=== PATIENT | female | born 1960 | race Caucasian/White ===

== ENCOUNTER → 2016-11-18 | Outpatient (CLI) | payer OTHER ==
[~2016-11-18] MED LIST: ALDACTONE100 MG PO; CIPRO500 MG PO; DILAUDID2 MG PO; FERROUS SULFAT325 MG PO; FUROSEMIDE20 MG PO; LASIX20 MG PO; LISINOPRIL10 MG PO; LO-DOSE ASPIRIN81 M2 PO; LOVASTATIN20 MG PO; METFORMIN HCL500 MG PO; MORPHINE SULFAT15 M1 PO; MORPHINE SULFAT30 M2 PO; MOTRIN800 MG PO; OXAYDO5 MG PO; OXYCODONE HCL10 MG PO; PLAVIX75 MG PO; PROTONIX40 MG PO; ROXICODONE5 MG PO; SPIRONOLACTONE50 MG PO
== END | disposition home or self-care (01) ==
LOC: RAD 08:24 → EDSTATUS 08:30
PROC: 0W9G3ZZ Drainage of Peritoneal Cavity, Percutaneous Approach (ICD-10-PCS; principal; 2016-11-18)
DX: R18.8 Other ascites (principal)
CPT/HCPCS: P9047

== ENCOUNTER 2016-11-26 16:09 | Emergency (ER) | payer OTHER ==
[~2016-11-26] VITALS: Ht 152.4 cm; Wt 71.5 kg
[2016-11-26 16:58] LABS: EOSINOPHIL (%) 3.3 % (0-5); EOSINOPHIL COUNT 0.3 K/uL (0-0.3); HEMATOCRIT 28.1 % (36.0-46.0); IMMATURE GRANULOCYTE (%) 0.1 % (0.0-0.7); IMMATURE GRANULOCYTE COUNT 0.1 K/uL; LYMPHOCYTE COUNT 0.7 K/uL (1.0-2.8); MCH 28.6 PG (29.0-34.0); MCHC 32.4 G/DL (30.0-36.0); MCV 88.4 FL (83-99); MEAN PLAT.VOLUME 9.6 uM^3 (9.5-12.4); MONOCYTE (%) 6.1 % (3-12); MONOCYTE COUNT 0.5 K/uL (0-0.8); NEUTROPHIL (%) 82.2 % (45-76); NEUTROPHIL COUNT 7.1 K/uL (1.8-6.4); PLATELET COUNT 119 K/uL (156-360); RBC DIS.WIDTH-CV 14.9 % (11.8-14.6); RBC DIS.WIDTH-SD 47.1 % (39-53); RED BLOOD COUNT 3.18 M/uL (3.80-5.20); WHITE BLOOD COUNT 8.7 K/uL (4.1-10.2)
[2016-11-26 17:05] LABS: ADD MIUA? YES; BILIRUBIN NEGATIVE; BLOOD NEGATIVE; COLOR YELLOW ((YELLOW)); GLUCOSE (STRIP) NEGATIVE; KETONES NEGATIVE; LEUKOCYTES NEGATIVE; NITRITE NEGATIVE; PH, URINE 5.5 (5-8); PROTEIN (STRIP) 30; SPECIFIC GRAVITY 1.026 (1.000-1.030); UROBILINOGEN 0.2 MG/DL (0.2-1.0)
[2016-11-26 17:07] LABS: CHLORIDE 109 mEq/L (99-109); POTASSIUM 4.1 mEq/L (3.7-5.4); SODIUM 138 mEq/L (136-147)
[2016-11-26 17:08] LABS: PROTHROMBIN TIME 10.6 (9.2-11.2); PTT 30.8 (25-32)
[2016-11-26 17:09] LABS: GLUCOSE 180 mg/dL (70-99)
[2016-11-26 17:10] LABS: ANION GAP 8 MEQ/L (2-14)
[2016-11-26 17:11] LABS: TOTAL BILIRUBIN 0.3 mg/dL (0.0-1.0)
[2016-11-26 17:12] LABS: ALKALINE PHOSPHATASE 163 IU/L (3-129)
[2016-11-26 17:13] LABS: GFR ESTIMATE (CALCULATED) 41 mL/min/
[2016-11-26 17:14] LABS: UREA NITROGEN (BUN) 25 mg/dL (9-23)
[2016-11-26 18:15] LABS: AMORPHOUS URATES CRYSTALS 1+; BACTERIA RARE; CASTS NONE SEEN /LPF; CRYSTALS PRESENT; EPITHELIAL CELLS 1+; MUCUS NONE SEEN; RED BLOOD CELLS NONE SEEN /HPF (0-5); WHITE BLOOD CELLS NONE SEEN /HPF (0-5)
[2016-11-26 21:13] LABS: TYPE OF FLUID PERITONEAL
[2016-11-26 22:00] LABS: BODY FLUID RBC'S 66 /MM^3 (0-100); BODY FLUID WBC'S 48 /MM^3 (0-500); RED CELL AREA COUNTED 8; RED CELL DILUTION 1; WBC AREA COUNTED 8; WBC DILUTION 1; WHITE CELL RAW COUNT 38
[2016-11-26 22:07] LABS: BODY FLUID EOSINOPHILS 0 % (0-25); MONO RAW COUNT 93; MONONUCLEAR WBC'S 93 %; POLY RAW COUNT 7; POLYNUCLEAR WBC'S 7 % (0-25)
[2016-11-26 23:15] VITALS: BP 116/87
== END 2016-11-26 23:16 | disposition home or self-care (01) ==
LOC: EME 16:09
PROVIDERS: Emergency Medicine; Physician Assistant
DX: R18.8 Other ascites (principal); R10.9 Unspecified abdominal pain; E11.9 Type 2 diabetes mellitus without complications; I10 Essential (primary) hypertension; I25.2 Old myocardial infarction; F17.200 Nicotine dependence, unspecified, uncomplicated; Z87.442 Personal history of urinary calculi; Z95.5 Presence of coronary angioplasty implant and graft; Z91.041 Radiographic dye allergy status; Z88.6 Allergy status to analgesic agent
CPT/HCPCS: 80053; 81003; 83605; 85025; 85610; 85730; 87040; 87070; 87205; 89051; 93005; 99281; 99285; J2060; J2270; J2405

== ENCOUNTER → 2016-12-02 | Outpatient (CLI) | payer OTHER | END | disposition home or self-care (01) | LOC: RAD 08:07 → EDSTATUS 08:30 | PROC: 0W9G3ZZ Drainage of Peritoneal Cavity, Percutaneous Approach (ICD-10-PCS; principal; 2016-12-02) | DX: R18.8 Other ascites (principal) | CPT/HCPCS: P9047 ==

== ENCOUNTER → 2016-12-19 | Outpatient (CLI) | payer OTHER | END | disposition home or self-care (01) | LOC: RAD 08:18 | DX: R18.8 Other ascites (principal); Z91.041 Radiographic dye allergy status; Z91.09 Other allergy status, other than to drugs and biological substances; Z88.6 Allergy status to analgesic agent; Z91.040 Latex allergy status | CPT/HCPCS: P9047 ==

== ENCOUNTER → 2016-12-26 | Outpatient (CLI) | payer OTHER ==
[~2016-12-26] MED LIST changes: +VITAMIN D2000 UNI1 PO
== END | disposition home or self-care (01) ==
LOC: RAD 08:30
PROC: 0W9G3ZZ Drainage of Peritoneal Cavity, Percutaneous Approach (ICD-10-PCS; principal; 2016-12-26)
DX: R18.8 Other ascites (principal)
CPT/HCPCS: P9047

== ENCOUNTER → 2017-01-02 | Outpatient (CLI) | payer OTHER | END | disposition home or self-care (01) | LOC: RAD 07:48 | PROC: 0W9G3ZZ Drainage of Peritoneal Cavity, Percutaneous Approach (ICD-10-PCS; principal; 2017-01-02) | DX: R18.8 Other ascites (principal) | CPT/HCPCS: P9047 ==

== ENCOUNTER → 2017-01-09 | Outpatient (CLI) | payer OTHER | END | disposition home or self-care (01) | LOC: RAD 07:43 | PROC: 0W9G3ZZ Drainage of Peritoneal Cavity, Percutaneous Approach (ICD-10-PCS; principal; 2017-01-09) | DX: R18.8 Other ascites (principal) | CPT/HCPCS: P9047 ==

== ENCOUNTER → 2017-01-13 | Outpatient (CLI) | payer OTHER | END | disposition home or self-care (01) | LOC: RAD 08:10 | PROC: 0W9G3ZZ Drainage of Peritoneal Cavity, Percutaneous Approach (ICD-10-PCS; principal; 2017-01-13) | DX: R18.8 Other ascites (principal) ==

== ENCOUNTER → 2017-01-23 | Outpatient (CLI) | payer OTHER | END | disposition home or self-care (01) | LOC: RAD 01-20 08:30 | PROC: 0W9G3ZZ Drainage of Peritoneal Cavity, Percutaneous Approach (ICD-10-PCS; principal; 2017-01-23) | DX: R18.8 Other ascites (principal) | CPT/HCPCS: P9047 ==

== ENCOUNTER → 2017-01-23 | Outpatient (CLI) | payer OTHER | END | disposition home or self-care (01) | LOC: PICC 07:52 | DX: R18.8 Other ascites (principal); K74.60 Unspecified cirrhosis of liver | CPT/HCPCS: 76937 ==

== ENCOUNTER 2017-01-24 11:43 | Emergency (ER) | payer OTHER ==
[~2017-01-24] VITALS: Ht 152.4 cm; Wt 67.6 kg
[2017-01-24 13:55] VITALS: BP 114/72
== END 2017-01-24 13:55 | disposition home or self-care (01) ==
LOC: EME 11:43
DX: T82.838A Hemorrhage due to vascular prosthetic devices, implants and grafts, initial encounter (principal); Y83.8 Other surgical procedures as the cause of abnormal reaction of the patient, or of later complication, without mention of misadventure at the time of the procedure; J45.909 Unspecified asthma, uncomplicated; G89.29 Other chronic pain; E11.9 Type 2 diabetes mellitus without complications; I10 Essential (primary) hypertension; I25.2 Old myocardial infarction; Z87.442 Personal history of urinary calculi; K74.60 Unspecified cirrhosis of liver; Z98.61 Coronary angioplasty status; Z79.82 Long term (current) use of aspirin; F17.200 Nicotine dependence, unspecified, uncomplicated
CPT/HCPCS: 99281; 99283

== ENCOUNTER → 2017-01-27 | Outpatient (CLI) | payer OTHER | END | disposition home or self-care (01) | LOC: RAD 08:12 | PROC: 0W9G3ZZ Drainage of Peritoneal Cavity, Percutaneous Approach (ICD-10-PCS; principal; 2017-01-27) | DX: R18.8 Other ascites (principal) | CPT/HCPCS: P9047 ==

== ENCOUNTER → 2017-02-03 | Outpatient (CLI) | payer OTHER | END | disposition home or self-care (01) | LOC: RAD 08:01 | PROC: 0W9G3ZZ Drainage of Peritoneal Cavity, Percutaneous Approach (ICD-10-PCS; principal; 2017-02-03) | DX: R18.8 Other ascites (principal) | CPT/HCPCS: P9047 ==

== ENCOUNTER → 2017-02-10 | Outpatient (CLI) | payer OTHER | END | disposition home or self-care (01) | LOC: RAD 08:14 | PROC: 0W9G3ZZ Drainage of Peritoneal Cavity, Percutaneous Approach (ICD-10-PCS; principal; 2017-02-10) | DX: R18.8 Other ascites (principal) | CPT/HCPCS: P9047 ==

== ENCOUNTER → 2017-02-17 | Outpatient (CLI) | payer OTHER | END | disposition home or self-care (01) | LOC: RAD 08:00 | PROC: 0W9G3ZZ Drainage of Peritoneal Cavity, Percutaneous Approach (ICD-10-PCS; principal; 2017-02-17) | DX: R18.8 Other ascites (principal) | CPT/HCPCS: P9047 ==

== ENCOUNTER → 2017-02-24 | Outpatient (CLI) | payer OTHER | END | disposition home or self-care (01) | LOC: RAD 08:03 | PROC: 0W9G3ZZ Drainage of Peritoneal Cavity, Percutaneous Approach (ICD-10-PCS; principal; 2017-02-24) | DX: R18.8 Other ascites (principal) ==

== ENCOUNTER → 2017-03-03 | Outpatient (CLI) | payer OTHER | END | disposition home or self-care (01) | LOC: RAD 08:03 | PROC: 0W9G3ZZ Drainage of Peritoneal Cavity, Percutaneous Approach (ICD-10-PCS; principal; 2017-03-03) | DX: R18.8 Other ascites (principal) | CPT/HCPCS: P9047 ==

== ENCOUNTER 2017-03-06 00:01 | Emergency (ER) | payer OTHER ==
[~2017-03-06] VITALS: Ht 152.4 cm; Wt 71.0 kg
[2017-03-06 00:26] LABS: HEMATOCRIT 27.8 % (36.0-46.0); MCH 27.5 PG (29.0-34.0); MCHC 30.9 G/DL (30.0-36.0); MCV 88.8 FL (83-99); MEAN PLAT.VOLUME 10.6 uM^3 (9.5-12.4); PLATELET COUNT 116 K/uL (156-360); RBC DIS.WIDTH-CV 16.5 % (11.8-14.6); RBC DIS.WIDTH-SD 54.1 % (39-53); RED BLOOD COUNT 3.13 M/uL (3.80-5.20)
[2017-03-06 00:36] LABS: INTER. NORMALIZED RATIO 1.1; PROTHROMBIN TIME 10.7 (9.2-11.2); PTT 32.7 (25-32)
[2017-03-06 00:37] LABS: CHLORIDE 107 mEq/L (99-109); POTASSIUM 4.2 mEq/L (3.7-5.4); SODIUM 137 mEq/L (136-147)
[2017-03-06 00:40] LABS: GLUCOSE 212 mg/dL (70-99)
[2017-03-06 00:41] LABS: ANION GAP 7 MEQ/L (2-14)
[2017-03-06 00:42] LABS: TOTAL BILIRUBIN 0.4 mg/dL (0.0-1.0)
[2017-03-06 00:43] LABS: ALKALINE PHOSPHATASE 152 IU/L (3-129); GFR ESTIMATE (CALCULATED) 35 mL/min/
[2017-03-06 00:44] LABS: UREA NITROGEN (BUN) 21 mg/dL (9-23)
[2017-03-06 00:47] LABS: LIPASE 28 U/L (1.0-51.0)
[2017-03-06 01:21] LABS: ADD MIUA? YES; BILIRUBIN NEGATIVE; BLOOD SMALL; COLOR YELLOW ((YELLOW)); GLUCOSE (STRIP) NEGATIVE; KETONES NEGATIVE; LEUKOCYTES NEGATIVE; NITRITE NEGATIVE; PROTEIN (STRIP) 30; SPECIFIC GRAVITY 1.018 (1.000-1.030); UROBILINOGEN 0.2 MG/DL (0.2-1.0)
[2017-03-06 01:33] LABS: BACTERIA RARE /HPF; EPITHELIAL CELLS 2+ /HPF; HYALINE CASTS 0-5 /LPF; MUCUS TRACE /LPF; UCUL ADDED? NO; WHITE BLOOD CELLS 0-5 /HPF (0-5)
[2017-03-06 08:53] LABS: TYPE OF FLUID PARACENTESIS
[2017-03-06 09:44] LABS: BODY FLUID PROTEIN < 3.0 G/DL
[2017-03-06 10:20] LABS: BODY FLUID EOSINOPHILS 3 % (0-25); BODY FLUID RBC'S < 1000 /MM^3 (0-100); BODY FLUID WBC'S 70 /MM^3 (0-500); MONONUCLEAR WBC'S 84 %; POLYNUCLEAR WBC'S 13 % (0-25)
[2017-03-06 13:32] VITALS: BP 92/56
== END 2017-03-06 13:37 | disposition home or self-care (01) ==
LOC: EME 00:01 → EDOF 08:12 → EME 08:12
PROVIDERS: Emergency Medicine
PROC: BW40ZZZ Ultrasonography of Abdomen (ICD-10-PCS; principal; 2017-03-06)
PROC: 0W9G3ZZ Drainage of Peritoneal Cavity, Percutaneous Approach (ICD-10-PCS; principal; 2017-03-06)
DX: R18.8 Other ascites (principal); K74.60 Unspecified cirrhosis of liver; E11.9 Type 2 diabetes mellitus without complications; I10 Essential (primary) hypertension; D64.9 Anemia, unspecified; Z79.02 Long term (current) use of antithrombotics/antiplatelets; Z79.82 Long term (current) use of aspirin; Z95.5 Presence of coronary angioplasty implant and graft; F17.200 Nicotine dependence, unspecified, uncomplicated
CPT/HCPCS: 71010; 74176; 80053; 81003; 82140; 82150 91; 83605; 83690; 84157; 85027; 85610; 85730; 86900; 86901; 87040; 87070; 87075; 87205; 89051; 99281; 99285; J0696; J2270; J2405; J7050

== ENCOUNTER → 2017-03-10 | Outpatient (CLI) | payer OTHER | END | disposition home or self-care (01) | LOC: RAD 07:45 | PROC: 0W9G3ZZ Drainage of Peritoneal Cavity, Percutaneous Approach (ICD-10-PCS; principal; 2017-03-10) | DX: R18.8 Other ascites (principal) | CPT/HCPCS: P9047 ==

== ENCOUNTER → 2017-03-17 | Outpatient (CLI) | payer OTHER | END | disposition home or self-care (01) | LOC: RAD 08:06 | PROC: 0W9G3ZZ Drainage of Peritoneal Cavity, Percutaneous Approach (ICD-10-PCS; principal; 2017-03-17) | DX: R18.8 Other ascites (principal) | CPT/HCPCS: P9047 ==

== ENCOUNTER → 2017-03-24 | Outpatient (CLI) | payer OTHER | END | disposition home or self-care (01) | LOC: RAD 07:51 | PROC: 0W9G3ZZ Drainage of Peritoneal Cavity, Percutaneous Approach (ICD-10-PCS; principal; 2017-03-24) | DX: R18.8 Other ascites (principal) | CPT/HCPCS: P9047 ==

== ENCOUNTER → 2017-03-31 | Outpatient (CLI) | payer OTHER | END | disposition home or self-care (01) | LOC: RAD 07:57 | PROC: 0W9G3ZZ Drainage of Peritoneal Cavity, Percutaneous Approach (ICD-10-PCS; principal; 2017-03-31) | DX: R18.8 Other ascites (principal) | CPT/HCPCS: P9047 ==

== ENCOUNTER → 2017-04-07 | Outpatient (CLI) | payer OTHER | END | disposition home or self-care (01) | LOC: RAD 07:56 | PROC: 0W9G3ZZ Drainage of Peritoneal Cavity, Percutaneous Approach (ICD-10-PCS; principal; 2017-04-07) | DX: R18.8 Other ascites (principal) | CPT/HCPCS: P9047 ==

== ENCOUNTER → 2017-04-14 | Outpatient (CLI) | payer OTHER | END | disposition home or self-care (01) | LOC: RAD 07:46 | PROC: 0W9G3ZZ Drainage of Peritoneal Cavity, Percutaneous Approach (ICD-10-PCS; principal; 2017-04-14) | DX: R18.8 Other ascites (principal) | CPT/HCPCS: P9047 ==

== ENCOUNTER → 2017-04-21 | Outpatient (CLI) | payer OTHER | END | disposition home or self-care (01) | LOC: RAD 07:55 | PROC: 0W9G3ZZ Drainage of Peritoneal Cavity, Percutaneous Approach (ICD-10-PCS; principal; 2017-04-21) | DX: R18.8 Other ascites (principal) | CPT/HCPCS: P9047 ==

== ENCOUNTER → 2017-04-28 | Outpatient (CLI) | payer OTHER | END | disposition home or self-care (01) | LOC: RAD 07:51 | PROC: 0W9G3ZZ Drainage of Peritoneal Cavity, Percutaneous Approach (ICD-10-PCS; principal; 2017-04-28) | DX: R18.8 Other ascites (principal) | CPT/HCPCS: P9047 ==

== ENCOUNTER 2017-05-01 08:02 | Emergency (ER) | payer OTHER ==
[~2017-05-01] VITALS: Ht 152.4 cm; Wt 70.3 kg
[2017-05-01 08:42] LABS: HEMATOCRIT 28.6 % (36.0-46.0); MCH 26.9 PG (29.0-34.0); MCHC 31.1 G/DL (30.0-36.0); MCV 86.4 FL (83-99); PLATELET COUNT 94 K/uL (156-360); RBC DIS.WIDTH-CV 16.6 % (11.8-14.6); RBC DIS.WIDTH-SD 52.2 % (39-53); RED BLOOD COUNT 3.31 M/uL (3.80-5.20); WHITE BLOOD COUNT 6.7 K/uL (4.1-10.2)
[2017-05-01 08:57] LABS: CHLORIDE 109 mEq/L (99-109); POTASSIUM 4.8 mEq/L (3.7-5.4); SODIUM 138 mEq/L (136-147)
[2017-05-01 09:00] LABS: GLUCOSE 141 mg/dL (70-99)
[2017-05-01 09:01] LABS: ANION GAP 5 MEQ/L (2-14); TOTAL BILIRUBIN 0.9 mg/dL (0.0-1.0)
[2017-05-01 09:03] LABS: ALKALINE PHOSPHATASE 141 IU/L (3-129); GFR ESTIMATE (CALCULATED) 41 mL/min/
[2017-05-01 09:04] LABS: UREA NITROGEN (BUN) 20 mg/dL (9-23)
[2017-05-01 09:07] LABS: LIPASE 30 U/L (1.0-51.0)
[2017-05-01 09:21] LABS: ADD MIUA? YES; BILIRUBIN NEGATIVE; BLOOD SMALL; COLOR YELLOW ((YELLOW)); GLUCOSE (STRIP) NEGATIVE; KETONES NEGATIVE; LEUKOCYTES NEGATIVE; NITRITE NEGATIVE; PROTEIN (STRIP) 30; SPECIFIC GRAVITY 1.014 (1.000-1.030); UROBILINOGEN 0.2 MG/DL (0.2-1.0)
[2017-05-01 09:25] LABS: BACTERIA RARE /HPF; EPITHELIAL CELLS 1+ /HPF; MUCUS TRACE /LPF; RED BLOOD CELLS 0-5 /HPF (0-5); UCUL ADDED? NO; WHITE BLOOD CELLS 0-5 /HPF (0-5)
[2017-05-01 09:48] LABS: INTER. NORMALIZED RATIO 1.1; PROTHROMBIN TIME 10.8 (9.2-11.2); PTT 29.9 (25-32)
[2017-05-01 12:01] VITALS: BP 128/71
== END 2017-05-01 12:02 | disposition home or self-care (01) ==
LOC: EME 08:02
PROVIDERS: Emergency Medicine
DX: R10.9 Unspecified abdominal pain (principal); R18.8 Other ascites; Z98.890 Other specified postprocedural states; I25.2 Old myocardial infarction; F17.200 Nicotine dependence, unspecified, uncomplicated; Z87.442 Personal history of urinary calculi; Z95.5 Presence of coronary angioplasty implant and graft; Z88.6 Allergy status to analgesic agent; Z91.040 Latex allergy status
CPT/HCPCS: 80053; 81003; 83690; 85027; 85610; 85730; 99281; 99284

== ENCOUNTER 2017-05-04 12:47 | Emergency (ER) | payer OTHER ==
[~2017-05-04] VITALS: Ht 152.4 cm; Wt 70.2 kg
[2017-05-04 14:10] LABS: HEMATOCRIT 28.7 % (36.0-46.0); MCH 26.6 PG (29.0-34.0); MCV 85.9 FL (83-99); MEAN PLAT.VOLUME 11.1 uM^3 (9.5-12.4); PLATELET COUNT 105 K/uL (156-360); RBC DIS.WIDTH-CV 16.6 % (11.8-14.6); RBC DIS.WIDTH-SD 52.4 % (39-53); RED BLOOD COUNT 3.34 M/uL (3.80-5.20); WHITE BLOOD COUNT 6.5 K/uL (4.1-10.2)
[2017-05-04 14:19] LABS: CHLORIDE 108 mEq/L (99-109); POTASSIUM 4.1 mEq/L (3.7-5.4); SODIUM 136 mEq/L (136-147)
[2017-05-04 14:21] LABS: GLUCOSE 105 mg/dL (70-99)
[2017-05-04 14:22] LABS: ANION GAP 6 MEQ/L (2-14)
[2017-05-04 14:24] LABS: ADD MIUA? YES; BILIRUBIN NEGATIVE; BLOOD SMALL; COLOR YELLOW ((YELLOW)); GLUCOSE (STRIP) NEGATIVE; KETONES NEGATIVE; LEUKOCYTES NEGATIVE; NITRITE NEGATIVE; PROTEIN (STRIP) 30; SPECIFIC GRAVITY 1.016 (1.000-1.030); UROBILINOGEN 0.2 MG/DL (0.2-1.0)
[2017-05-04 14:25] LABS: ALKALINE PHOSPHATASE 146 IU/L (3-129); GFR ESTIMATE (CALCULATED) 41 mL/min/; TOTAL BILIRUBIN 0.4 mg/dL (0.0-1.0)
[2017-05-04 14:26] LABS: UREA NITROGEN (BUN) 19 mg/dL (9-23)
[2017-05-04 14:28] LABS: BACTERIA NONE SEEN /HPF; EPITHELIAL CELLS RARE /HPF; HYALINE CASTS 0-5 /LPF; MUCUS TRACE /LPF; RED BLOOD CELLS 0-5 /HPF (0-5); UCUL ADDED? NO; WHITE BLOOD CELLS 0-5 /HPF (0-5)
[2017-05-04 14:32] LABS: INTER. NORMALIZED RATIO 1.1; PROTHROMBIN TIME 11.1 (9.2-11.2)
[2017-05-04 14:55] LABS: LIPASE 40 U/L (1.0-51.0)
[2017-05-04 18:07] LABS: TYPE OF FLUID PERICARDIAL
[2017-05-04 18:57] LABS: BODY FLUID EOSINOPHILS 2 % (0-25); BODY FLUID RBC'S < 1000 /MM^3 (0-100); BODY FLUID WBC'S 46 /MM^3 (0-500); COMMENT MANY MACROPHAGES AND FEW MESOTHELIAL CELLS SEEN; MONONUCLEAR WBC'S 93 %; POLYNUCLEAR WBC'S 5 % (0-25)
[2017-05-04 20:13] LABS: BODY FLUID PROTEIN < 3.0 G/DL
[2017-05-04 20:53] VITALS: BP 107/64
== END 2017-05-04 22:02 | disposition home or self-care (01) ==
LOC: EME 12:47
PROVIDERS: Emergency Medicine
DX: K52.9 Noninfective gastroenteritis and colitis, unspecified (principal); K72.90 Hepatic failure, unspecified without coma; Z79.02 Long term (current) use of antithrombotics/antiplatelets; Z79.82 Long term (current) use of aspirin; Z95.5 Presence of coronary angioplasty implant and graft; J45.909 Unspecified asthma, uncomplicated; E11.9 Type 2 diabetes mellitus without complications; I10 Essential (primary) hypertension; Z87.442 Personal history of urinary calculi; I25.2 Old myocardial infarction; Z91.041 Radiographic dye allergy status; Z88.6 Allergy status to analgesic agent; Z91.048 Other nonmedicinal substance allergy status; F17.200 Nicotine dependence, unspecified, uncomplicated
CPT/HCPCS: 71020; 74176; 80053; 81003; 82040; 82945; 83690; 84157; 85027; 85610; 87070; 87205; 89051; 93005; 99281; 99285; J2270; J3010; J7030

== ENCOUNTER 2017-05-05 18:37 | Emergency (ER) | payer OTHER ==
[~2017-05-05] VITALS: Ht 152.4 cm; Wt 66.1 kg
[2017-05-05 20:32] LABS: ADD MIUA? YES; BILIRUBIN NEGATIVE; BLOOD SMALL; COLOR YELLOW ((YELLOW)); GLUCOSE (STRIP) NEGATIVE; KETONES NEGATIVE; LEUKOCYTES NEGATIVE; NITRITE NEGATIVE; PROTEIN (STRIP) 30; SPECIFIC GRAVITY 1.014 (1.000-1.030)
[2017-05-05 20:55] LABS: BACTERIA NONE SEEN /HPF; EPITHELIAL CELLS 1+ /HPF; HYALINE CASTS 0-5 /LPF; MUCUS TRACE /LPF; UCUL ADDED? NO; WHITE BLOOD CELLS 0-5 /HPF (0-5)
[2017-05-05 21:00] LABS: HEMATOCRIT 26.4 % (36.0-46.0); MCH 27.1 PG (29.0-34.0); MCHC 31.8 G/DL (30.0-36.0); MCV 85.2 FL (83-99); MEAN PLAT.VOLUME 10.8 uM^3 (9.5-12.4); PLATELET COUNT 99 K/uL (156-360); RBC DIS.WIDTH-CV 16.6 % (11.8-14.6); RBC DIS.WIDTH-SD 51.8 % (39-53)
[2017-05-05 21:11] LABS: CHLORIDE 111 mEq/L (99-109); POTASSIUM 4.1 mEq/L (3.7-5.4); SODIUM 140 mEq/L (136-147)
[2017-05-05 21:13] LABS: GLUCOSE 99 mg/dL (70-99)
[2017-05-05 21:14] LABS: ANION GAP 6 MEQ/L (2-14)
[2017-05-05 21:16] LABS: ALKALINE PHOSPHATASE 126 IU/L (3-129)
[2017-05-05 21:17] LABS: GFR ESTIMATE (CALCULATED) 45 mL/min/
[2017-05-05 21:18] LABS: UREA NITROGEN (BUN) 19 mg/dL (9-23)
[2017-05-05 21:20] LABS: LIPASE 34 U/L (1.0-51.0); TOTAL BILIRUBIN 0.5 mg/dL (0.0-1.0)
[2017-05-06 00:18] VITALS: BP 110/72
== END 2017-05-06 00:21 | disposition home or self-care (01) ==
LOC: EME 18:37
PROVIDERS: Emergency Medicine
DX: R10.9 Unspecified abdominal pain (principal); K74.60 Unspecified cirrhosis of liver; I25.2 Old myocardial infarction; E11.9 Type 2 diabetes mellitus without complications; J45.909 Unspecified asthma, uncomplicated; Z98.61 Coronary angioplasty status; Z79.82 Long term (current) use of aspirin; Z79.891 Long term (current) use of opiate analgesic; Z79.01 Long term (current) use of anticoagulants; F17.200 Nicotine dependence, unspecified, uncomplicated
CPT/HCPCS: 71020; 74000; 80053; 81003; 83690; 85027; 99281; 99285; J2270; J7030

== ENCOUNTER 2017-05-06 16:52 | Inpatient (IN) | payer OTHER ==
[~2017-05-06] VITALS: Ht 152.4 cm; Wt 66.6 kg
[2017-05-06 17:19] LABS: HEMATOCRIT 27.4 % (36.0-46.0); MCH 26.7 PG (29.0-34.0); MCHC 31.4 G/DL (30.0-36.0); MCV 85.1 FL (83-99); MEAN PLAT.VOLUME 10.4 uM^3 (9.5-12.4); PLATELET COUNT 100 K/uL (156-360); RBC DIS.WIDTH-CV 16.6 % (11.8-14.6); RBC DIS.WIDTH-SD 51.7 % (39-53); RED BLOOD COUNT 3.22 M/uL (3.80-5.20); WHITE BLOOD COUNT 7.3 K/uL (4.1-10.2)
[2017-05-06 17:27] LABS: CHLORIDE 111 mEq/L (99-109); POTASSIUM 4.2 mEq/L (3.7-5.4); SODIUM 138 mEq/L (136-147)
[2017-05-06 17:30] LABS: GLUCOSE 130 mg/dL (70-99)
[2017-05-06 17:31] LABS: ANION GAP 5 MEQ/L (2-14)
[2017-05-06 17:32] LABS: TOTAL BILIRUBIN 0.6 mg/dL (0.0-1.0)
[2017-05-06 17:33] LABS: ALKALINE PHOSPHATASE 125 IU/L (3-129); GFR ESTIMATE (CALCULATED) 49 mL/min/
[2017-05-06 17:34] LABS: UREA NITROGEN (BUN) 15 mg/dL (9-23)
[2017-05-06 18:05] LABS: ADD MIUA? YES; BILIRUBIN NEGATIVE; BLOOD MODERATE; COLOR YELLOW ((YELLOW)); GLUCOSE (STRIP) NEGATIVE; KETONES NEGATIVE; LEUKOCYTES NEGATIVE; NITRITE NEGATIVE; PROTEIN (STRIP) 30; SPECIFIC GRAVITY 1.016 (1.000-1.030)
[2017-05-06 18:13] LABS: BACTERIA NONE SEEN /HPF; EPITHELIAL CELLS 2+ /HPF; MUCUS TRACE /LPF; RED BLOOD CELLS 0-5 /HPF (0-5); UCUL ADDED? NO; WHITE BLOOD CELLS 0-5 /HPF (0-5)
[2017-05-06 21:28] VITALS: BP 129/92
[2017-05-07 02:29] VITALS: BP 115/55
[2017-05-07 07:49] VITALS: BP 113/59
[2017-05-07 11:47] VITALS: BP 93/55
[2017-05-07 16:10] VITALS: BP 125/65
[2017-05-07 16:10] LABS: POINT-OF-CARE METER ID UU13113725
[2017-05-07 16:17] LABS: HEMATOCRIT 26.9 % (36.0-46.0); MCH 27.5 PG (29.0-34.0); MCHC 31.2 G/DL (30.0-36.0); MCV 88.2 FL (83-99); MEAN PLAT.VOLUME 11.1 uM^3 (9.5-12.4); PLATELET COUNT 93 K/uL (156-360); RBC DIS.WIDTH-CV 16.9 % (11.8-14.6); RBC DIS.WIDTH-SD 54.4 % (39-53); RED BLOOD COUNT 3.05 M/uL (3.80-5.20); WHITE BLOOD COUNT 5.6 K/uL (4.1-10.2)
[2017-05-07 16:27] LABS: ANION GAP 4 MEQ/L (2-14); CHLORIDE 111 MEQ/L (99-109); DIRECT BILIRUBIN 0.2 mg/dL (0.0-0.3); SAMPLE HEMOLYSIS CHECK 0; SAMPLE ICTERIC CHECK 0; SAMPLE LIPEMIA CHECK 0; SODIUM 137 MEQ/L (136-147); TOTAL BILIRUBIN 0.6 MG/DL (0.0-1.0)
[2017-05-07 16:33] LABS: ALKALINE PHOSPHATASE 110 IU/L (3-129); GFR ESTIMATE (CALCULATED) 41 mL/min/; GLUCOSE 122 mg/dL (70-99); UREA NITROGEN (BUN) 15 mg/dL (9-23)
[2017-05-07 20:13] VITALS: BP 101/55
[2017-05-07 21:39] LABS: POINT-OF-CARE METER ID UU13113725
[2017-05-08 00:52] VITALS: BP 110/63
[2017-05-08 03:47] VITALS: BP 109/66
[2017-05-08 07:07] VITALS: BP 105/64
[2017-05-08 07:23] LABS: ANION GAP 7 MEQ/L (2-14); CHLORIDE 112 MEQ/L (99-109); GFR ESTIMATE (CALCULATED) 38 mL/min/; POTASSIUM 4.2 MEQ/L (3.7-5.4); SAMPLE HEMOLYSIS CHECK 0; SAMPLE ICTERIC CHECK 0; SAMPLE LIPEMIA CHECK 0; SODIUM 138 MEQ/L (136-147); UREA NITROGEN (BUN) 16 mg/dL (9-23)
[2017-05-08 07:26] LABS: GLUCOSE 91 mg/dL (70-99)
[2017-05-08 09:27] LABS: HEMATOCRIT 27.3 % (36.0-46.0); MCH 26.9 PG (29.0-34.0); MCHC 30.4 G/DL (30.0-36.0); MCV 88.3 FL (83-99); MEAN PLAT.VOLUME 10.8 uM^3 (9.5-12.4); PLATELET COUNT 95 K/uL (156-360); RBC DIS.WIDTH-SD 54.8 % (39-53); RED BLOOD COUNT 3.09 M/uL (3.80-5.20); WHITE BLOOD COUNT 4.6 K/uL (4.1-10.2)
[2017-05-08 11:29] LABS: POINT-OF-CARE METER ID UU13113725
[2017-05-08 12:55] LABS: TYPE OF FLUID PARACENTESIS
[2017-05-08 13:31] LABS: BODY FLUID PROTEIN < 3.0 G/DL
[2017-05-08 13:42] LABS: BODY FLUID EOSINOPHILS 0 % (0-25); BODY FLUID RBC'S < 1000 /MM^3 (0-100); BODY FLUID WBC'S 34 /MM^3 (0-500); MONONUCLEAR WBC'S 95 %; POLYNUCLEAR WBC'S 5 % (0-25)
[2017-05-08 16:34] VITALS: BP 111/56
[2017-05-08 16:38] LABS: POINT-OF-CARE METER ID UU13113725
[2017-05-08 21:06] LABS: POINT-OF-CARE METER ID UU13113725
[2017-05-08 23:19] VITALS: BP 110/61
[2017-05-09 05:43] LABS: POINT-OF-CARE METER ID UU13113725
[2017-05-09 06:59] VITALS: BP 107/59
[2017-05-09 17:24] VITALS: BP 110/64
[2017-05-09 22:20] VITALS: BP 98/53
[2017-05-10 05:52] LABS: POINT-OF-CARE METER ID UU13113725
[2017-05-10 06:10] LABS: EOSINOPHIL (%) 0 % (0-5); HEMATOCRIT 23.4 % (36.0-46.0); IMMATURE GRANULOCYTE (%) 0.3 % (0.0-0.7); INSTRUMENT ABS NEUTROPHIL CT 2.9 K/uL; LYMPHOCYTE COUNT 0.6 K/uL (1.0-2.8); MCH 27.7 PG (29.0-34.0); MCHC 31.6 G/DL (30.0-36.0); MCV 87.6 FL (83-99); MEAN PLAT.VOLUME 11.3 uM^3 (9.5-12.4); MONOCYTE COUNT 0.3 K/uL (0-0.8); NEUTROPHIL (%) 77.7 % (45-76); NEUTROPHIL COUNT 2.9 K/uL (1.8-6.4); PLATELET COUNT 75 K/uL (156-360); RBC DIS.WIDTH-CV 17.1 % (11.8-14.6); RBC DIS.WIDTH-SD 53.7 % (39-53); RED BLOOD COUNT 2.67 M/uL (3.80-5.20); WHITE BLOOD COUNT 3.7 K/uL (4.1-10.2)
[2017-05-10 06:41] LABS: ANION GAP 5 MEQ/L (2-14); CHLORIDE 112 MEQ/L (99-109); GFR ESTIMATE (CALCULATED) 35 mL/min/; GLUCOSE 124 mg/dL (70-99); POTASSIUM 4.1 MEQ/L (3.7-5.4); SAMPLE HEMOLYSIS CHECK 0; SAMPLE ICTERIC CHECK 0; SAMPLE LIPEMIA CHECK 0; SODIUM 139 MEQ/L (136-147); UREA NITROGEN (BUN) 16 mg/dL (9-23)
[2017-05-10 07:55] VITALS: BP 100/57
[2017-05-10 15:38] VITALS: BP 93/54
[2017-05-10 15:47] LABS: POINT-OF-CARE METER ID UU13113725
[2017-05-10] MEDS ORDERED: PANTOPRAZOLE SO40 MG PO (20:01)
[2017-05-10] MEDS ORDERED: CEFADROXIL500 MG PO (20:01)
[2017-05-10] MEDS ORDERED: OXYCODONE HCL5 MG PO (20:05)
== END 2017-05-10 20:57 | disposition home or self-care (01) | DRG 948 ==
LOC: EME 16:52 → EDOF 19:06 → 5EAST 19:06
PROVIDERS: Internal Medicine; Internal Medicine Gastroenterology
PROC: 0W9G3ZZ Drainage of Peritoneal Cavity, Percutaneous Approach (ICD-10-PCS; principal; 2017-05-08)
DX: R18.8 Other ascites (principal); R10.9 Unspecified abdominal pain; K74.69 Other cirrhosis of liver; K76.6 Portal hypertension; I25.10 Atherosclerotic heart disease of native coronary artery without angina pectoris; I10 Essential (primary) hypertension; D64.9 Anemia, unspecified; D69.6 Thrombocytopenia, unspecified; K52.9 Noninfective gastroenteritis and colitis, unspecified; E11.9 Type 2 diabetes mellitus without complications; J45.909 Unspecified asthma, uncomplicated; F17.200 Nicotine dependence, unspecified, uncomplicated; Z95.5 Presence of coronary angioplasty implant and graft; I25.2 Old myocardial infarction; Z79.02 Long term (current) use of antithrombotics/antiplatelets; Z79.82 Long term (current) use of aspirin; Z79.891 Long term (current) use of opiate analgesic; Z91.041 Radiographic dye allergy status
CPT/HCPCS: 71010; 74176; 74185; 80048; 80053; 80069; 81003; 82248; 82945; 82948; 84157; 85025; 85027; 87070; 87205; 87493; 88108; 88305; 89051; 99281; 99284; C9113; J1170; J1650; J1815; J2060; J2405; J7042; J7050; P9047

== ENCOUNTER → 2017-05-13 | Outpatient (CLI) | payer OTHER ==
[~2017-05-13] MED LIST changes: +CEFADROXIL500 MG PO; +OXYCODONE HCL5 MG PO; +PANTOPRAZOLE SO40 MG PO
== END | disposition home or self-care (01) ==
LOC: RAD 08:09
PROC: 0W9G3ZZ Drainage of Peritoneal Cavity, Percutaneous Approach (ICD-10-PCS; principal; 2017-05-13)
DX: R18.8 Other ascites (principal)
CPT/HCPCS: 49083; P9047

== ENCOUNTER → 2017-05-19 | Outpatient (CLI) | payer OTHER ==
[~2017-05-19] MED LIST changes: +ARYMO ER15 MG PO
== END | disposition home or self-care (01) ==
LOC: RAD 07:49
PROC: 0W9G3ZZ Drainage of Peritoneal Cavity, Percutaneous Approach (ICD-10-PCS; principal; 2017-05-19)
DX: R18.8 Other ascites (principal)
CPT/HCPCS: 49083

== ENCOUNTER → 2017-05-26 | Outpatient (CLI) | payer OTHER | END | disposition home or self-care (01) | LOC: RAD 07:51 | PROC: 0W9G3ZZ Drainage of Peritoneal Cavity, Percutaneous Approach (ICD-10-PCS; principal; 2017-05-26) | DX: R18.8 Other ascites (principal) | CPT/HCPCS: 49083 ==

== ENCOUNTER → 2017-06-02 | Outpatient (CLI) | payer OTHER | END | disposition home or self-care (01) | LOC: RAD 08:10 | PROC: 0W9G3ZZ Drainage of Peritoneal Cavity, Percutaneous Approach (ICD-10-PCS; principal; 2017-06-02) | DX: R18.8 Other ascites (principal) | CPT/HCPCS: 49083 ==

== ENCOUNTER → 2017-06-08 | Outpatient (CLI) | payer OTHER | END | disposition home or self-care (01) | LOC: RAD 08:08 | PROC: 0W9G3ZZ Drainage of Peritoneal Cavity, Percutaneous Approach (ICD-10-PCS; principal; 2017-06-08) | DX: R18.8 Other ascites (principal) | CPT/HCPCS: 49083 ==

== ENCOUNTER 2017-06-15 11:05 | Emergency (ER) | payer OTHER ==
[~2017-06-15] VITALS: Ht 152.4 cm; Wt 66.2 kg
[2017-06-15 11:49] LABS: ADD MIUA? YES; BILIRUBIN NEGATIVE; BLOOD MODERATE; COLOR YELLOW ((YELLOW)); GLUCOSE (STRIP) NEGATIVE; KETONES NEGATIVE; LEUKOCYTES NEGATIVE; NITRITE NEGATIVE; PROTEIN (STRIP) 30; SPECIFIC GRAVITY 1.014 (1.000-1.030); UROBILINOGEN 0.2 MG/DL (0.2-1.0)
[2017-06-15 11:52] LABS: BACTERIA NONE SEEN /HPF; EPITHELIAL CELLS RARE /HPF; HYALINE CASTS 0-5 /LPF; MUCUS TRACE /LPF; UCUL ADDED? NO; WHITE BLOOD CELLS 0-5 /HPF (0-5)
[2017-06-15 12:30] LABS: EOSINOPHIL (%) 0 % (0-5); HEMATOCRIT 27.5 % (36.0-46.0); IMMATURE GRANULOCYTE (%) 0.5 % (0.0-0.7); INSTRUMENT ABS NEUTROPHIL CT 5.8 K/uL; LYMPHOCYTE COUNT 0.5 K/uL (1.0-2.8); MCH 26.7 PG (29.0-34.0); MCV 83.6 FL (83-99); MEAN PLAT.VOLUME 10.9 uM^3 (9.5-12.4); MONOCYTE (%) 3.9 % (3-12); MONOCYTE COUNT 0.3 K/uL (0-0.8); NEUTROPHIL (%) 87.2 % (45-76); NEUTROPHIL COUNT 5.8 K/uL (1.8-6.4); PLATELET COUNT 85 K/uL (156-360); RBC DIS.WIDTH-CV 16.9 % (11.8-14.6); RBC DIS.WIDTH-SD 51.8 % (39-53); RED BLOOD COUNT 3.29 M/uL (3.80-5.20); WHITE BLOOD COUNT 6.6 K/uL (4.1-10.2)
[2017-06-15 12:57] LABS: CHLORIDE 108 mEq/L (99-109); SODIUM 138 mEq/L (136-147)
[2017-06-15 12:59] LABS: GLUCOSE 125 mg/dL (70-99)
[2017-06-15 13:00] LABS: ANION GAP 6 MEQ/L (2-14)
[2017-06-15 13:01] LABS: TOTAL BILIRUBIN 0.5 mg/dL (0.0-1.0)
[2017-06-15 13:03] LABS: ALKALINE PHOSPHATASE 165 IU/L (3-129); GFR ESTIMATE (CALCULATED) 49 mL/min/
[2017-06-15 13:04] LABS: UREA NITROGEN (BUN) 17 mg/dL (9-23)
[2017-06-15 13:06] LABS: LIPASE 37 U/L (1.0-51.0)
[2017-06-15 16:22] VITALS: BP 132/72
== END 2017-06-15 16:23 | disposition home or self-care (01) ==
LOC: EME → EDSEX 11:05 → EDBD 11:05 → EME 11:05
PROVIDERS: Emergency Medicine
DX: R10.9 Unspecified abdominal pain (principal); K74.60 Unspecified cirrhosis of liver; F17.200 Nicotine dependence, unspecified, uncomplicated; I25.2 Old myocardial infarction; I10 Essential (primary) hypertension; E11.9 Type 2 diabetes mellitus without complications; R18.8 Other ascites; Z79.82 Long term (current) use of aspirin; Z79.02 Long term (current) use of antithrombotics/antiplatelets
CPT/HCPCS: 71010; 74176; 80053; 81003; 83690; 85025; 99281; 99284; J2270; J2405; J2765; J7030

== ENCOUNTER → 2017-06-15 | Outpatient (CLI) | payer OTHER | END | disposition home or self-care (01) | LOC: RAD 07:43 | PROC: 0W9G3ZZ Drainage of Peritoneal Cavity, Percutaneous Approach (ICD-10-PCS; principal; 2017-06-15) | DX: R18.8 Other ascites (principal) | CPT/HCPCS: 49083; P9047 ==

== ENCOUNTER → 2017-06-23 | Outpatient (CLI) | payer OTHER | END | disposition home or self-care (01) | LOC: RAD 07:59 | PROC: 0W9G3ZZ Drainage of Peritoneal Cavity, Percutaneous Approach (ICD-10-PCS; principal; 2017-06-23) | DX: R18.8 Other ascites (principal) | CPT/HCPCS: 49083; P9047 ==

== ENCOUNTER → 2017-06-30 | Outpatient (CLI) | payer OTHER | END | disposition home or self-care (01) | LOC: RAD 07:53 | PROC: 0W9G3ZZ Drainage of Peritoneal Cavity, Percutaneous Approach (ICD-10-PCS; principal; 2017-06-30) | DX: R18.8 Other ascites (principal) | CPT/HCPCS: 49083; P9047 ==

== ENCOUNTER → 2017-07-07 | Outpatient (CLI) | payer OTHER ==
[~2017-07-07] MED LIST changes: +FLAGYL500 MG PO
== END | disposition home or self-care (01) ==
LOC: RAD 07:51
PROC: 0W9G3ZZ Drainage of Peritoneal Cavity, Percutaneous Approach (ICD-10-PCS; principal; 2017-07-07)
DX: R18.8 Other ascites (principal)
CPT/HCPCS: 49083; P9047

== ENCOUNTER 2017-07-12 22:16 | Observation (INO) | payer OTHER ==
[~2017-07-12] VITALS: Ht 152.4 cm; Wt 71.5 kg
[~2017-07-12 22:16] MED LIST changes: -FLAGYL500 MG PO
[2017-07-12 23:34] LABS: ADD MIUA? YES; BILIRUBIN NEGATIVE; BLOOD SMALL; COLOR YELLOW ((YELLOW)); GLUCOSE (STRIP) NEGATIVE; KETONES NEGATIVE; LEUKOCYTES SMALL; NITRITE NEGATIVE; PROTEIN (STRIP) 30; SPECIFIC GRAVITY 1.017 (1.000-1.030); UROBILINOGEN 0.2 MG/DL (0.2-1.0)
[2017-07-12 23:39] LABS: BACTERIA RARE /HPF; EPITHELIAL CELLS 2+ /HPF; HYALINE CASTS 0-5 /LPF; MUCUS TRACE /LPF; RED BLOOD CELLS 0-5 /HPF (0-5); UCUL ADDED? NO; WHITE BLOOD CELLS 0-5 /HPF (0-5)
[2017-07-13] LABS: HEMATOCRIT 24.6 % (36.0-46.0); MCH 27.8 PG (29.0-34.0); MCHC 32.1 G/DL (30.0-36.0); MCV 86.6 FL (83-99); MEAN PLAT.VOLUME 11.3 uM^3 (9.5-12.4); PLATELET COUNT 83 K/uL (156-360); RBC DIS.WIDTH-CV 16.3 % (11.8-14.6); RBC DIS.WIDTH-SD 51.8 % (39-53); RED BLOOD COUNT 2.84 M/uL (3.80-5.20); WHITE BLOOD COUNT 5.1 K/uL (4.1-10.2)
[2017-07-13 00:11] LABS: CHLORIDE 111 mEq/L (99-109); POTASSIUM 4.8 mEq/L (3.7-5.4); SODIUM 139 mEq/L (136-147)
[2017-07-13 00:13] LABS: GLUCOSE 133 mg/dL (70-99)
[2017-07-13 00:14] LABS: ANION GAP 7 MEQ/L (2-14)
[2017-07-13 00:15] LABS: TOTAL BILIRUBIN 0.4 mg/dL (0.0-1.0)
[2017-07-13 00:16] LABS: ALKALINE PHOSPHATASE 134 IU/L (3-129)
[2017-07-13 00:17] LABS: GFR ESTIMATE (CALCULATED) 41 mL/min/
[2017-07-13 00:18] LABS: UREA NITROGEN (BUN) 19 mg/dL (9-23)
[2017-07-13 04:46] VITALS: BP 124/76
[2017-07-13 07:50] VITALS: BP 97/53
[2017-07-13 11:35] VITALS: BP 116/68
[2017-07-13 15:35] VITALS: BP 125/61
[2017-07-13] MEDS ORDERED: PROTONIX40 MG PO (17:55)
[2017-07-13] MEDS ORDERED: MORPHINE SULFAT15 M1 PO (17:57)
[2017-07-13 19:43] VITALS: BP 107/64
[2017-07-13 23:41] VITALS: BP 111/59
[2017-07-14 03:41] VITALS: BP 84/45
[2017-07-14 07:17] LABS: EOSINOPHIL (%) 0.2 % (0-5); HEMATOCRIT 26.4 % (36.0-46.0); IMMATURE GRANULOCYTE (%) 0.2 % (0.0-0.7); INSTRUMENT ABS NEUTROPHIL CT 3.9 K/uL; LYMPHOCYTE COUNT 0.7 K/uL (1.0-2.8); MCH 27.5 PG (29.0-34.0); MCHC 31.1 G/DL (30.0-36.0); MCV 88.6 FL (83-99); MONOCYTE (%) 5.7 % (3-12); MONOCYTE COUNT 0.3 K/uL (0-0.8); NEUTROPHIL (%) 79.4 % (45-76); NEUTROPHIL COUNT 3.9 K/uL (1.8-6.4); PLATELET COUNT 79 K/uL (156-360); RBC DIS.WIDTH-CV 16.4 % (11.8-14.6); RBC DIS.WIDTH-SD 53.1 % (39-53); RED BLOOD COUNT 2.98 M/uL (3.80-5.20); WHITE BLOOD COUNT 4.9 K/uL (4.1-10.2)
[2017-07-14 07:39] LABS: INTER. NORMALIZED RATIO 1.1; PROTHROMBIN TIME 11.9 SEC (10.2-12.9)
[2017-07-14 07:41] LABS: PTT 36.7 SEC (25-37)
[2017-07-14 07:43] LABS: ALKALINE PHOSPHATASE 130 IU/L (3-129); ANION GAP 4 MEQ/L (2-14); CHLORIDE 109 MEQ/L (99-109); DIRECT BILIRUBIN 0.1 mg/dL (0.0-0.3); GFR ESTIMATE (CALCULATED) 41 mL/min/; POTASSIUM 4.2 MEQ/L (3.7-5.4); SAMPLE HEMOLYSIS CHECK 0; SAMPLE ICTERIC CHECK 0; SAMPLE LIPEMIA CHECK 0; SODIUM 136 MEQ/L (136-147); TOTAL BILIRUBIN 0.6 MG/DL (0.0-1.0); UREA NITROGEN (BUN) 17 mg/dL (9-23)
[2017-07-14 07:45] LABS: GLUCOSE 95 mg/dL (70-99)
[2017-07-14 09:09] VITALS: BP 100/58
[2017-07-14 12:25] VITALS: BP 105/60
[2017-07-14] MEDS ORDERED: FLAGYL500 MG PO (14:37)
[2017-07-14] MEDS ORDERED: CIPRO500 MG PO (14:38)
[2017-07-14 16:22] VITALS: BP 105/60
== END 2017-07-14 16:52 | disposition home or self-care (01) ==
LOC: EME 22:16 → 2EAST 07-13 02:46 → EDOF 07-13 02:46 → ENRESERV 07-13 02:59 → 2EAST 07-13 04:35
PROVIDERS: Internal Medicine
PROC: 0W9G3ZZ Drainage of Peritoneal Cavity, Percutaneous Approach (ICD-10-PCS; principal; 2017-07-14)
DX: R10.84 Generalized abdominal pain (principal); K74.60 Unspecified cirrhosis of liver; R18.8 Other ascites; I10 Essential (primary) hypertension; G89.29 Other chronic pain; I25.10 Atherosclerotic heart disease of native coronary artery without angina pectoris; Z95.5 Presence of coronary angioplasty implant and graft; I25.2 Old myocardial infarction; E11.9 Type 2 diabetes mellitus without complications; J44.9 Chronic obstructive pulmonary disease, unspecified; Z87.891 Personal history of nicotine dependence; Z79.891 Long term (current) use of opiate analgesic; Z82.49 Family history of ischemic heart disease and other diseases of the circulatory system; Z83.3 Family history of diabetes mellitus
CPT/HCPCS: 49083; 74000; 74176; 80053; 81003; 82248; 85025; 85027; 85610; 85730; 99281; 99285; C9113; G0378; J0744; J1650; J2270; J2405; S0030

== ENCOUNTER → 2017-07-21 | Outpatient (CLI) | payer OTHER ==
[~2017-07-21] MED LIST changes: +FLAGYL500 MG PO
== END | disposition home or self-care (01) ==
LOC: RAD 07:51
PROC: 0W9G3ZZ Drainage of Peritoneal Cavity, Percutaneous Approach (ICD-10-PCS; principal; 2017-07-21)
DX: R18.8 Other ascites (principal)
CPT/HCPCS: 49083; P9047

== ENCOUNTER → 2017-07-28 | Outpatient (CLI) | payer OTHER | END | disposition home or self-care (01) | LOC: RAD 07:54 | PROC: 0W9G3ZZ Drainage of Peritoneal Cavity, Percutaneous Approach (ICD-10-PCS; principal; 2017-07-28) | DX: R18.8 Other ascites (principal) | CPT/HCPCS: 49083 ==

== ENCOUNTER → 2017-08-04 | Outpatient (CLI) | payer OTHER ==
[~2017-08-04] MED LIST changes: +BACTRIM,SEPT1 TABLET PO
== END | disposition home or self-care (01) ==
LOC: RAD 08:11
PROC: 0W9G3ZZ Drainage of Peritoneal Cavity, Percutaneous Approach (ICD-10-PCS; principal; 2017-08-04)
DX: R18.8 Other ascites (principal)
CPT/HCPCS: 49083

== ENCOUNTER 2017-08-05 21:32 | Inpatient (IN) | payer OTHER ==
[~2017-08-05] VITALS: Ht 152.4 cm; Wt 69.3 kg
[~2017-08-05 21:32] MED LIST changes: -BACTRIM,SEPT1 TABLET PO
[2017-08-05 21:51] LABS: HEMATOCRIT 28.6 % (36.0-46.0); MCH 27.9 PG (29.0-34.0); MCHC 31.8 G/DL (30.0-36.0); MCV 87.7 FL (83-99); MEAN PLAT.VOLUME 10.9 uM^3 (9.5-12.4); PLATELET COUNT 97 K/uL (156-360); RBC DIS.WIDTH-CV 16.6 % (11.8-14.6); RBC DIS.WIDTH-SD 53.3 % (39-53); RED BLOOD COUNT 3.26 M/uL (3.80-5.20); WHITE BLOOD COUNT 7.6 K/uL (4.1-10.2)
[2017-08-05 22:00] LABS: CHLORIDE 109 mEq/L (99-109); POTASSIUM 4.4 mEq/L (3.7-5.4); SODIUM 137 mEq/L (136-147)
[2017-08-05 22:02] LABS: GLUCOSE 159 mg/dL (70-99)
[2017-08-05 22:03] LABS: ANION GAP 7 MEQ/L (2-14)
[2017-08-05 22:04] LABS: TOTAL BILIRUBIN 0.4 mg/dL (0.0-1.0)
[2017-08-05 22:05] LABS: ALKALINE PHOSPHATASE 167 IU/L (3-129)
[2017-08-05 22:06] LABS: GFR ESTIMATE (CALCULATED) 41 mL/min/
[2017-08-05 22:07] LABS: UREA NITROGEN (BUN) 20 mg/dL (9-23)
[2017-08-05 22:09] LABS: LIPASE 45 U/L (1.0-51.0)
[2017-08-05 22:22] LABS: ADD MIUA? YES; BILIRUBIN NEGATIVE; BLOOD MODERATE; COLOR YELLOW ((YELLOW)); GLUCOSE (STRIP) NEGATIVE; KETONES NEGATIVE; LEUKOCYTES TRACE; NITRITE NEGATIVE; PROTEIN (STRIP) 30
[2017-08-05 22:30] LABS: BACTERIA RARE /HPF; EPITHELIAL CELLS 1+ /HPF; MUCUS TRACE /LPF; UCUL ADDED? YES
[2017-08-06 01:09] LABS: BODY FLUID RBC'S 74 /MM^3 (0-100); BODY FLUID WBC'S 3000 /MM^3 (0-500)
[2017-08-06 01:28] LABS: BODY FLUID EOSINOPHILS 0 % (0-25); MONO RAW COUNT 94; MONONUCLEAR WBC'S 94 %; POLY RAW COUNT 6; POLYNUCLEAR WBC'S 6 % (0-25)
[2017-08-06] MEDS ORDERED: OXYCODONE HCL10 MG PO (01:39)
[2017-08-06 03:07] LABS: BODY FLUID PROTEIN < 3.0 G/DL
[2017-08-06 05:17] VITALS: BP 104/65
[2017-08-06 09:03] VITALS: BP 109/62
[2017-08-06 10:03] LABS: TYPE OF FLUID PERITONEAL
[2017-08-06 15:35] VITALS: BP 101/62
[2017-08-06 20:33] VITALS: BP 105/59
[2017-08-07] VITALS (7 sets, daily range): BP systolic 102–126; BP diastolic 53–63
[2017-08-07 06:47] LABS: HEMATOCRIT 26.6 % (36.0-46.0); MCH 27.2 PG (29.0-34.0); MCHC 30.8 G/DL (30.0-36.0); MCV 88.1 FL (83-99); MEAN PLAT.VOLUME 11.8 uM^3 (9.5-12.4); PLATELET COUNT 83 K/uL (156-360); RBC DIS.WIDTH-CV 16.5 % (11.8-14.6); RBC DIS.WIDTH-SD 53.4 % (39-53); RED BLOOD COUNT 3.02 M/uL (3.80-5.20); WHITE BLOOD COUNT 5.7 K/uL (4.1-10.2)
[2017-08-07 07:09] LABS: ALKALINE PHOSPHATASE 113 IU/L (3-129); ANION GAP 6 MEQ/L (2-14); CHLORIDE 111 MEQ/L (99-109); DIRECT BILIRUBIN 0.2 mg/dL (0.0-0.3); GFR ESTIMATE (CALCULATED) 49 mL/min/; POTASSIUM 4.5 MEQ/L (3.7-5.4); SAMPLE HEMOLYSIS CHECK 0; SAMPLE ICTERIC CHECK 0; SAMPLE LIPEMIA CHECK 0; SODIUM 138 MEQ/L (136-147); TOTAL BILIRUBIN 0.5 MG/DL (0.0-1.0); UREA NITROGEN (BUN) 19 mg/dL (9-23)
[2017-08-07 07:26] LABS: GLUCOSE 110 mg/dL (70-99)
[2017-08-08] VITALS (10 sets, daily range): BP systolic 94–117; BP diastolic 51–65
[2017-08-08 07:19] LABS: HEMATOCRIT 32.8 % (36.0-46.0); MCH 28.9 PG (29.0-34.0); MCHC 32.3 G/DL (30.0-36.0); MCV 89.4 FL (83-99); MEAN PLAT.VOLUME 11.9 uM^3 (9.5-12.4); PLATELET COUNT 83 K/uL (156-360); RBC DIS.WIDTH-CV 15.9 % (11.8-14.6); RBC DIS.WIDTH-SD 52.4 % (39-53); RED BLOOD COUNT 3.67 M/uL (3.80-5.20); WHITE BLOOD COUNT 5.6 K/uL (4.1-10.2)
[2017-08-08 07:31] LABS: ANION GAP 3 MEQ/L (2-14); CHLORIDE 108 MEQ/L (99-109); GFR ESTIMATE (CALCULATED) 41 mL/min/; GLUCOSE 89 mg/dL (70-99); POTASSIUM 4.6 MEQ/L (3.7-5.4); SAMPLE HEMOLYSIS CHECK 0; SAMPLE ICTERIC CHECK 0; SAMPLE LIPEMIA CHECK 0; SODIUM 135 MEQ/L (136-147); UREA NITROGEN (BUN) 18 mg/dL (9-23)
[2017-08-09] VITALS: BP 98/60
[2017-08-09 07:12] LABS: EOSINOPHIL (%) 0 % (0-5); HEMATOCRIT 31.5 % (36.0-46.0); IMMATURE GRANULOCYTE (%) 0.2 % (0.0-0.7); INSTRUMENT ABS NEUTROPHIL CT 4.2 K/uL; LYMPHOCYTE COUNT 0.7 K/uL (1.0-2.8); MCH 28.8 PG (29.0-34.0); MCHC 32.7 G/DL (30.0-36.0); MEAN PLAT.VOLUME 11.7 uM^3 (9.5-12.4); MONOCYTE (%) 6.2 % (3-12); MONOCYTE COUNT 0.3 K/uL (0-0.8); NEUTROPHIL (%) 79.9 % (45-76); NEUTROPHIL COUNT 4.2 K/uL (1.8-6.4); PLATELET COUNT 76 K/uL (156-360); RBC DIS.WIDTH-CV 16.6 % (11.8-14.6); RBC DIS.WIDTH-SD 53.1 % (39-53); RED BLOOD COUNT 3.58 M/uL (3.80-5.20); WHITE BLOOD COUNT 5.3 K/uL (4.1-10.2)
[2017-08-09 07:35] LABS: ANION GAP 4 MEQ/L (2-14); CHLORIDE 112 MEQ/L (99-109); GFR ESTIMATE (CALCULATED) 35 mL/min/; GLUCOSE 99 mg/dL (70-99); POTASSIUM 4.7 MEQ/L (3.7-5.4); SAMPLE HEMOLYSIS CHECK 0; SAMPLE ICTERIC CHECK 0; SAMPLE LIPEMIA CHECK 0; SODIUM 138 MEQ/L (136-147); UREA NITROGEN (BUN) 21 mg/dL (9-23)
[2017-08-09 07:48] VITALS: BP 102/68
[2017-08-09 15:46] VITALS: BP 97/52
[2017-08-09] MEDS ORDERED: BACTRIM,SEPT1 TABLET PO (17:54)
[2017-08-09] MEDS ORDERED: PANTOPRAZOLE SO40 MG PO (17:54)
[2017-08-09] MEDS ORDERED: FUROSEMIDE20 MG PO (17:54)
[2017-08-12] MEDS ORDERED: LASIX20 MG PO (08:16)
== END 2017-08-09 18:20 | disposition home or self-care (01) | DRG 433 ==
LOC: EME 21:32 → EDOF 08-06 01:51 → 2EAST 08-06 01:51 → ENRESERV 08-06 02:08 → 2EAST 08-06 04:48
PROVIDERS: Emergency Medicine; Family Medicine; Internal Medicine
PROC: 0W9G3ZZ Drainage of Peritoneal Cavity, Percutaneous Approach (ICD-10-PCS; principal; 2017-08-05)
PROC: 30233N1 Transfusion of Nonautologous Red Blood Cells into Peripheral Vein, Percutaneous Approach (ICD-10-PCS; 2017-08-08)
DX: K74.60 Unspecified cirrhosis of liver (principal); R18.8 Other ascites; K76.6 Portal hypertension; N39.0 Urinary tract infection, site not specified; D64.9 Anemia, unspecified; I10 Essential (primary) hypertension; E11.9 Type 2 diabetes mellitus without complications; J44.9 Chronic obstructive pulmonary disease, unspecified; I25.10 Atherosclerotic heart disease of native coronary artery without angina pectoris; F17.210 Nicotine dependence, cigarettes, uncomplicated; G89.29 Other chronic pain; Z68.29 Body mass index [BMI] 29.0-29.9, adult; I25.2 Old myocardial infarction; Z95.5 Presence of coronary angioplasty implant and graft; Z83.3 Family history of diabetes mellitus; Z82.49 Family history of ischemic heart disease and other diseases of the circulatory system
CPT/HCPCS: 49083; 71020; 74176; 80048; 80053; 81003; 82040; 82248; 82945; 83690; 84157; 85025; 85027; 86850; 86860; 86870; 86880; 86900; 86901; 86920; 87070; 87075; 87086; 87205; 88108; 88305; 89051; 99281; 99285; J0692; J0696; J1170; J1650; J2270; J7030; J7050; P9016; S0030

== ENCOUNTER → 2017-08-12 | Outpatient (CLI) | payer OTHER ==
[~2017-08-12] MED LIST changes: +BACTRIM,SEPT1 TABLET PO
== END | disposition home or self-care (01) ==
LOC: RAD 07:49
PROC: 0W9G3ZZ Drainage of Peritoneal Cavity, Percutaneous Approach (ICD-10-PCS; principal; 2017-08-12)
DX: R18.8 Other ascites (principal)
CPT/HCPCS: 49083

== ENCOUNTER → 2017-08-19 | Outpatient (CLI) | payer OTHER | END | disposition home or self-care (01) | LOC: RAD 07:51 | PROC: 0W9G3ZZ Drainage of Peritoneal Cavity, Percutaneous Approach (ICD-10-PCS; principal; 2017-08-19) | DX: R18.8 Other ascites (principal) | CPT/HCPCS: 49083 ==

== ENCOUNTER → 2017-08-25 | Outpatient (CLI) | payer OTHER | END | disposition home or self-care (01) | LOC: RAD 07:46 | PROC: 0W9G3ZZ Drainage of Peritoneal Cavity, Percutaneous Approach (ICD-10-PCS; principal; 2017-08-25) | DX: R18.8 Other ascites (principal) | CPT/HCPCS: 49083 ==

== ENCOUNTER → 2017-09-02 | Outpatient (CLI) | payer OTHER | END | disposition home or self-care (01) | LOC: RAD 08-31 08:15 | PROC: 0W9G3ZZ Drainage of Peritoneal Cavity, Percutaneous Approach (ICD-10-PCS; principal; 2017-09-02) | DX: R18.8 Other ascites (principal) | CPT/HCPCS: 49083 ==

== ENCOUNTER → 2017-09-07 | Outpatient (CLI) | payer OTHER | END | disposition home or self-care (01) | LOC: RAD 07:48 | PROC: 0W9G3ZZ Drainage of Peritoneal Cavity, Percutaneous Approach (ICD-10-PCS; principal; 2017-09-07) | DX: R18.8 Other ascites (principal) | CPT/HCPCS: 49083 ==

== ENCOUNTER → 2017-10-06 | Outpatient (CLI) | payer SELFPAY | END | disposition home or self-care (01) | LOC: RAD 07:35 | PROC: 0W9G3ZZ Drainage of Peritoneal Cavity, Percutaneous Approach (ICD-10-PCS; principal; 2017-10-06) | DX: R18.8 Other ascites (principal) | CPT/HCPCS: 49083; P9047 ==

== ENCOUNTER → 2017-10-27 | Outpatient (CLI) | payer SELFPAY ==
[2017-10-27 08:57] LABS: INTER. NORMALIZED RATIO 1.1; PROTHROMBIN TIME 12.8 SEC (10.2-12.9)
== END | disposition home or self-care (01) ==
LOC: RAD 09-15 13:15
PROVIDERS: Radiology Diagnostic Radiology
PROC: 0W9G3ZZ Drainage of Peritoneal Cavity, Percutaneous Approach (ICD-10-PCS; principal; 2017-10-27)
DX: R18.8 Other ascites (principal)
CPT/HCPCS: 49083; 85610; 85730; P9047

== ENCOUNTER 2017-12-02 08:13 | Emergency (ER) | payer SELFPAY ==
[~2017-12-02] VITALS: Ht 160 cm; Wt 76.4 kg
[2017-12-02 08:19] VITALS: BP 143/82
[2017-12-02 09:12] LABS: HEMATOCRIT 27.2 % (36.0-46.0); HEMOGLOBIN 8.6 G/DL (11.9-15.5); MCH 28.9 PG (29.0-34.0); MCHC 31.6 G/DL (30.0-36.0); MCV 91.3 FL (83-99); PLATELET COUNT 89 K/uL (156-360); RBC DIS.WIDTH-CV 15.5 % (11.8-14.6); RBC DIS.WIDTH-SD 51.8 % (39-53); RED BLOOD COUNT 2.98 M/uL (3.80-5.20)
[2017-12-02 09:22] LABS: ALBUMIN 2.6 g/dL (3.2-4.8); CHLORIDE 109 mEq/L (99-109); POTASSIUM 4.1 mEq/L (3.7-5.4); SODIUM 138 mEq/L (136-147)
[2017-12-02 09:25] LABS: GLUCOSE 108 mg/dL (70-99); TOTAL PROTEIN 7.9 g/dL (6.4-8.3)
[2017-12-02 09:26] LABS: TOTAL BILIRUBIN 0.5 mg/dL (0.0-1.0)
[2017-12-02 09:28] LABS: ALKALINE PHOSPHATASE 189 IU/L (3-129); CREATININE 1.4 mg/dL (0.6-1.3); GFR ESTIMATE (CALCULATED) 41 mL/min/
[2017-12-02 09:29] LABS: UREA NITROGEN (BUN) 18 mg/dL (9-23)
[2017-12-02 09:30] LABS: AST (GOT) 18 IU/L (2-34)
[2017-12-02 09:31] LABS: ALT (GPT) 14 IU/L (3-49)
[2017-12-02 10:32] LABS: APPEARANCE SL.HAZY ((CLEAR)); BILIRUBIN NEGATIVE; BLOOD SMALL; COLOR YELLOW ((YELLOW)); GLUCOSE (STRIP) NEGATIVE; KETONES NEGATIVE; LEUKOCYTES MODERATE; NITRITE NEGATIVE; PROTEIN (STRIP) 100; SPECIFIC GRAVITY 1.017 (1.000-1.030)
[2017-12-02 10:43] LABS: BACTERIA 3+ /HPF; EPITHELIAL CELLS 3+ /HPF; HYALINE CASTS 0-5 /LPF; MUCUS 1+ /LPF; UCUL ADDED? YES; WHITE BLOOD CELLS 20-30 /HPF (0-5)
== END 2017-12-02 11:19 | disposition left against medical advice (07) ==
LOC: EME 08:13
DX: R10.9 Unspecified abdominal pain (principal); Z53.21 Procedure and treatment not carried out due to patient leaving prior to being seen by health care provider
CPT/HCPCS: 80053; 81003; 85027; 87086

== ENCOUNTER 2017-12-26 13:36 | Emergency (ER) | payer SELFPAY ==
[~2017-12-26] VITALS: Ht 152.4 cm; Wt 77.2 kg
[2017-12-26 13:57] LABS: HEMOGLOBIN 9.1 G/DL (11.9-15.5); MCH 29.1 PG (29.0-34.0); MCHC 32.5 G/DL (30.0-36.0); MCV 89.5 FL (83-99); PLATELET COUNT 75 K/uL (156-360); RBC DIS.WIDTH-CV 15.9 % (11.8-14.6); RBC DIS.WIDTH-SD 52.1 % (39-53); RED BLOOD COUNT 3.13 M/uL (3.80-5.20); WHITE BLOOD COUNT 3.9 K/uL (4.1-10.2)
[2017-12-26 14:12] LABS: ALBUMIN 2.5 G/DL (3.2-4.8); CHLORIDE 109 MEQ/L (99-109); POTASSIUM 4.4 MEQ/L (3.7-5.4); SODIUM 136 MEQ/L (136-147); TOTAL BILIRUBIN 0.9 MG/DL (0.0-1.0)
[2017-12-26 14:18] LABS: ALKALINE PHOSPHATASE 197 IU/L (3-129); ALT (GPT) 8 IU/L (3-49); AST (GOT) 19 IU/L (2-34); CREATININE 1.4 MG/DL (0.6-1.3); GFR ESTIMATE (CALCULATED) 41 mL/min/; GLUCOSE 122 mg/dL (70-99); LIPASE 32 U/L (1.0-51.0); UREA NITROGEN (BUN) 18 mg/dL (9-23)
[2017-12-26 14:42] LABS: APPEARANCE SL.HAZY ((CLEAR)); BILIRUBIN NEGATIVE; BLOOD SMALL; COLOR YELLOW ((YELLOW)); GLUCOSE (STRIP) NEGATIVE; KETONES NEGATIVE; LEUKOCYTES SMALL; NITRITE NEGATIVE; PROTEIN (STRIP) 100; SPECIFIC GRAVITY 1.017 (1.000-1.030)
[2017-12-26 14:46] LABS: BACTERIA RARE /HPF; EPITHELIAL CELLS 2+ /HPF; HYALINE CASTS 0-5 /LPF; MUCUS TRACE /LPF; RED BLOOD CELLS 15-20 /HPF (0-5); UCUL ADDED? NO; WHITE BLOOD CELLS 0-5 /HPF (0-5)
[2017-12-26 17:57] LABS: INTER. NORMALIZED RATIO 1.1
[2017-12-26 18:00] LABS: PTT 43.8 SEC (25-37)
[2017-12-26] MEDS ORDERED: OXYCODONE HCL10 MG PO (19:32)
[2017-12-26 19:58] VITALS: BP 151/88
== END 2017-12-26 20:13 | disposition home or self-care (01) ==
LOC: EME 13:36
DX: R18.8 Other ascites (principal); G89.29 Other chronic pain; E11.65 Type 2 diabetes mellitus with hyperglycemia; I25.2 Old myocardial infarction; I10 Essential (primary) hypertension; J45.909 Unspecified asthma, uncomplicated; K74.60 Unspecified cirrhosis of liver; F17.200 Nicotine dependence, unspecified, uncomplicated; Z79.82 Long term (current) use of aspirin; Z79.02 Long term (current) use of antithrombotics/antiplatelets; Z79.891 Long term (current) use of opiate analgesic; Z91.14 Patient's other noncompliance with medication regimen; Z91.041 Radiographic dye allergy status; Z88.6 Allergy status to analgesic agent
CPT/HCPCS: 80053; 81003; 83690; 85027; 85610; 85730; 99281; 99283

== ENCOUNTER → 2017-12-29 | Outpatient (CLI) | payer SELFPAY | END | disposition home or self-care (01) | LOC: RAD 13:00 | PROC: 0W9G3ZZ Drainage of Peritoneal Cavity, Percutaneous Approach (ICD-10-PCS; principal; 2017-12-29) | DX: R18.8 Other ascites (principal) | CPT/HCPCS: 49083 ==

== ENCOUNTER 2018-01-02 23:34 | Emergency (ER) | payer SELFPAY ==
[~2018-01-02] VITALS: Ht 152.4 cm; Wt 74.8 kg
[2018-01-02 23:53] LABS: APPEARANCE SL.HAZY ((CLEAR)); BILIRUBIN NEGATIVE; BLOOD MODERATE; COLOR YELLOW ((YELLOW)); GLUCOSE (STRIP) NEGATIVE; KETONES NEGATIVE; LEUKOCYTES SMALL; NITRITE NEGATIVE; PROTEIN (STRIP) >=500; SPECIFIC GRAVITY 1.019 (1.000-1.030)
[2018-01-03 00:02] LABS: BACTERIA 1+ /HPF; EPITHELIAL CELLS 3+ /HPF; MUCUS TRACE /LPF; UCUL ADDED? YES
[2018-01-03 00:09] LABS: HEMATOCRIT 26.7 % (36.0-46.0); HEMOGLOBIN 8.6 G/DL (11.9-15.5); MCH 28.7 PG (29.0-34.0); MCHC 32.2 G/DL (30.0-36.0); PLATELET COUNT 89 K/uL (156-360); RBC DIS.WIDTH-CV 15.9 % (11.8-14.6); RBC DIS.WIDTH-SD 52.2 % (39-53); WHITE BLOOD COUNT 5.3 K/uL (4.1-10.2)
[2018-01-03 00:18] LABS: ALBUMIN 2.4 g/dL (3.2-4.8); CHLORIDE 110 mEq/L (99-109); POTASSIUM 4.2 mEq/L (3.7-5.4); SODIUM 136 mEq/L (136-147)
[2018-01-03 00:20] LABS: GLUCOSE 166 mg/dL (70-99); TOTAL PROTEIN 7.5 g/dL (6.4-8.3)
[2018-01-03 00:22] LABS: TOTAL BILIRUBIN 0.8 mg/dL (0.0-1.0)
[2018-01-03 00:24] LABS: ALKALINE PHOSPHATASE 185 IU/L (3-129); CREATININE 1.3 mg/dL (0.6-1.3); GFR ESTIMATE (CALCULATED) 45 mL/min/
[2018-01-03 00:25] LABS: AST (GOT) 17 IU/L (2-34); UREA NITROGEN (BUN) 16 mg/dL (9-23)
[2018-01-03 00:27] LABS: ALT (GPT) 13 IU/L (3-49); LIPASE 27 U/L (1.0-51.0)
[2018-01-03] MEDS ORDERED: CIPRO500 MG PO (05:07)
[2018-01-03] MEDS ORDERED: ROXICODONE5 MG PO (05:07)
[2018-01-03 05:16] VITALS: BP 146/74
== END 2018-01-03 05:18 | disposition home or self-care (01) ==
LOC: EME 23:34
DX: N39.0 Urinary tract infection, site not specified (principal); D64.9 Anemia, unspecified; K74.60 Unspecified cirrhosis of liver; R10.9 Unspecified abdominal pain; Z87.442 Personal history of urinary calculi; I10 Essential (primary) hypertension; J45.909 Unspecified asthma, uncomplicated; I25.2 Old myocardial infarction; Z79.82 Long term (current) use of aspirin; F17.200 Nicotine dependence, unspecified, uncomplicated
CPT/HCPCS: 74176; 80053; 81003; 83690; 85027; 87086; 99281; 99284; J2270

== ENCOUNTER 2018-01-28 12:10 | Emergency (ER) | payer SELFPAY ==
[~2018-01-28] VITALS: Ht 154.9 cm; Wt 74.9 kg
[2018-01-28 12:46] LABS: HEMATOCRIT 28.3 % (36.0-46.0); MCH 28.8 PG (29.0-34.0); MCHC 31.8 G/DL (30.0-36.0); MCV 90.4 FL (83-99); PLATELET COUNT 90 K/uL (156-360); RBC DIS.WIDTH-CV 16.1 % (11.8-14.6); RBC DIS.WIDTH-SD 53.9 % (39-53); RED BLOOD COUNT 3.13 M/uL (3.80-5.20); WHITE BLOOD COUNT 5.7 K/uL (4.1-10.2)
[2018-01-28 12:56] LABS: ALBUMIN 2.4 g/dL (3.2-4.8)
[2018-01-28 12:57] LABS: CHLORIDE 110 mEq/L (99-109); POTASSIUM 4.2 mEq/L (3.7-5.4); SODIUM 139 mEq/L (136-147)
[2018-01-28 12:59] LABS: GLUCOSE 203 mg/dL (70-99); TOTAL PROTEIN 7.9 g/dL (6.4-8.3)
[2018-01-28 13:01] LABS: TOTAL BILIRUBIN 0.8 mg/dL (0.0-1.0)
[2018-01-28 13:02] LABS: ALKALINE PHOSPHATASE 184 IU/L (3-129)
[2018-01-28 13:03] LABS: CREATININE 1.4 mg/dL (0.6-1.3); GFR ESTIMATE (CALCULATED) 41 mL/min/
[2018-01-28 13:04] LABS: AST (GOT) 17 IU/L (2-34); UREA NITROGEN (BUN) 16 mg/dL (9-23)
[2018-01-28 13:05] LABS: ALT (GPT) 13 IU/L (3-49)
[2018-01-28 15:23] LABS: APPEARANCE CLEAR ((CLEAR)); BILIRUBIN NEGATIVE; BLOOD MODERATE; COLOR AMBER ((YELLOW)); GLUCOSE (STRIP) NEGATIVE; KETONES NEGATIVE; LEUKOCYTES TRACE; NITRITE NEGATIVE; PROTEIN (STRIP) >=500; SPECIFIC GRAVITY 1.016 (1.000-1.030)
[2018-01-28 15:35] LABS: BACTERIA 1+ /HPF; EPITHELIAL CELLS 2+ /HPF; HYALINE CASTS 0-5 /LPF; MUCUS TRACE /LPF; UCUL ADDED? YES
[2018-01-28 19:00] VITALS: BP 134/71
== END 2018-01-28 20:03 | disposition home or self-care (01) ==
LOC: EME 12:10
PROC: 0W9G3ZZ Drainage of Peritoneal Cavity, Percutaneous Approach (ICD-10-PCS; principal; 2018-01-28)
DX: K74.60 Unspecified cirrhosis of liver (principal); R18.8 Other ascites; I10 Essential (primary) hypertension; J45.909 Unspecified asthma, uncomplicated; F17.200 Nicotine dependence, unspecified, uncomplicated; I25.2 Old myocardial infarction; Z79.82 Long term (current) use of aspirin; Z91.041 Radiographic dye allergy status; Z88.6 Allergy status to analgesic agent
CPT/HCPCS: 49083; 74176; 80053; 81003; 82140; 85027; 87086; 93005; 99281; 99285; J2270; J2405; J7030

== ENCOUNTER 2018-02-05 14:10 | Emergency (ER) | payer OTHER ==
[~2018-02-05] VITALS: Ht 160 cm; Wt 73.1 kg
[2018-02-05 16:00] LABS: HEMATOCRIT 26.8 % (36.0-46.0); HEMOGLOBIN 8.7 G/DL (11.9-15.5); MCH 28.9 PG (29.0-34.0); MCHC 32.5 G/DL (30.0-36.0); PLATELET COUNT 69 K/uL (156-360); RBC DIS.WIDTH-CV 15.9 % (11.8-14.6); RBC DIS.WIDTH-SD 52.4 % (39-53); RED BLOOD COUNT 3.01 M/uL (3.80-5.20); WHITE BLOOD COUNT 4.3 K/uL (4.1-10.2)
[2018-02-05 16:09] LABS: ALBUMIN 2.3 g/dL (3.2-4.8); CHLORIDE 109 mEq/L (99-109); POTASSIUM 4.5 mEq/L (3.7-5.4); SODIUM 138 mEq/L (136-147)
[2018-02-05 16:12] LABS: GLUCOSE 129 mg/dL (70-99); TOTAL PROTEIN 7.6 g/dL (6.4-8.3)
[2018-02-05 16:14] LABS: TOTAL BILIRUBIN 0.7 mg/dL (0.0-1.0)
[2018-02-05 16:15] LABS: ALKALINE PHOSPHATASE 181 IU/L (3-129); CREATININE 1.3 mg/dL (0.6-1.3); GFR ESTIMATE (CALCULATED) 45 mL/min/
[2018-02-05 16:16] LABS: UREA NITROGEN (BUN) 18 mg/dL (9-23)
[2018-02-05 16:17] LABS: AST (GOT) 18 IU/L (2-34)
[2018-02-05 16:18] LABS: ALT (GPT) 12 IU/L (3-49)
[2018-02-05 16:19] LABS: LIPASE 32 U/L (1.0-51.0)
[2018-02-05 17:16] LABS: APPEARANCE CLEAR ((CLEAR)); BILIRUBIN NEGATIVE; BLOOD SMALL; COLOR YELLOW ((YELLOW)); GLUCOSE (STRIP) NEGATIVE; KETONES NEGATIVE; LEUKOCYTES NEGATIVE; NITRITE NEGATIVE; PROTEIN (STRIP) 100
[2018-02-05 17:25] LABS: BACTERIA RARE /HPF; EPITHELIAL CELLS RARE /HPF; MUCUS NONE SEEN /LPF; UCUL ADDED? NO; WHITE BLOOD CELLS 0-5 /HPF (0-5)
[2018-02-05 18:00] LABS: INTER. NORMALIZED RATIO 1.1
[2018-02-05 18:03] LABS: PTT 40.5 SEC (25-37)
[2018-02-05 23:53] LABS: TYPE OF FLUID PERITONEAL
[2018-02-06 00:08] LABS: BODY FLUID AMYLASE 10 U/L
[2018-02-06 00:17] LABS: BODY FLUID GLUCOSE 138 MG/DL; BODY FLUID LDH 64 IU/L; BODY FLUID PROTEIN 1.4 G/DL
[2018-02-06 00:40] LABS: APPEARANCE CLOUDY-BLOODY; BODY FLUID EOSINOPHILS 1 % (0-25); BODY FLUID RBC'S 21000 /MM^3 (0-100); BODY FLUID WBC'S 45 /MM^3 (0-500); MONONUCLEAR WBC'S 96 %; POLYNUCLEAR WBC'S 3 % (0-25)
[2018-02-06 00:55] VITALS: BP 139/83
== END 2018-02-06 01:08 | disposition home or self-care (01) ==
LOC: EME 14:10
PROVIDERS: Nurse Practitioner Family; Physician Assistant Medical
PROC: 0W9G3ZZ Drainage of Peritoneal Cavity, Percutaneous Approach (ICD-10-PCS; principal; 2018-02-05)
DX: R18.8 Other ascites (principal); K74.60 Unspecified cirrhosis of liver; Z76.82 Awaiting organ transplant status; I10 Essential (primary) hypertension; I25.2 Old myocardial infarction; J45.909 Unspecified asthma, uncomplicated; F17.200 Nicotine dependence, unspecified, uncomplicated; Z79.82 Long term (current) use of aspirin; Z88.6 Allergy status to analgesic agent
CPT/HCPCS: 49083; 80053; 81003; 82150 91; 82945; 83615 91; 83690; 84157; 85027; 85610; 85730; 87070; 87075; 87205; 89051; 99281; 99284

== ENCOUNTER 2018-02-07 20:24 | Emergency (ER) | payer SELFPAY ==
[~2018-02-07] VITALS: Ht 152.4 cm; Wt 71.2 kg
[2018-02-07 21:05] LABS: HEMATOCRIT 26.6 % (36.0-46.0); HEMOGLOBIN 8.6 G/DL (11.9-15.5); MCH 29.1 PG (29.0-34.0); MCHC 32.3 G/DL (30.0-36.0); MCV 89.9 FL (83-99); PLATELET COUNT 78 K/uL (156-360); RBC DIS.WIDTH-CV 15.9 % (11.8-14.6); RBC DIS.WIDTH-SD 52.4 % (39-53); RED BLOOD COUNT 2.96 M/uL (3.80-5.20); WHITE BLOOD COUNT 4.8 K/uL (4.1-10.2)
[2018-02-07 21:14] LABS: ALBUMIN 2.3 g/dL (3.2-4.8)
[2018-02-07 21:15] LABS: CHLORIDE 111 mEq/L (99-109); POTASSIUM 4.6 mEq/L (3.7-5.4); SODIUM 139 mEq/L (136-147)
[2018-02-07 21:17] LABS: GLUCOSE 165 mg/dL (70-99); TOTAL PROTEIN 7.8 g/dL (6.4-8.3)
[2018-02-07 21:20] LABS: ALKALINE PHOSPHATASE 177 IU/L (3-129); TOTAL BILIRUBIN 0.5 mg/dL (0.0-1.0)
[2018-02-07 21:21] LABS: CREATININE 1.6 mg/dL (0.6-1.3); GFR ESTIMATE (CALCULATED) 35 mL/min/
[2018-02-07 21:22] LABS: AST (GOT) 16 IU/L (2-34); UREA NITROGEN (BUN) 23 mg/dL (9-23)
[2018-02-07 21:24] LABS: ALT (GPT) 10 IU/L (3-49)
[2018-02-07 21:30] LABS: APPEARANCE CLEAR ((CLEAR)); BILIRUBIN NEGATIVE; BLOOD MODERATE; COLOR YELLOW ((YELLOW)); GLUCOSE (STRIP) NEGATIVE; KETONES NEGATIVE; LEUKOCYTES TRACE; NITRITE NEGATIVE; PROTEIN (STRIP) >=500; SPECIFIC GRAVITY 1.017 (1.000-1.030)
[2018-02-07 21:42] LABS: BACTERIA RARE /HPF; EPITHELIAL CELLS 1+ /HPF; MUCUS TRACE /LPF; RED BLOOD CELLS 15-20 /HPF (0-5); UCUL ADDED? NO; WHITE BLOOD CELLS 0-5 /HPF (0-5)
[2018-02-07 22:22] VITALS: BP 142/84
== END 2018-02-07 22:31 | disposition home or self-care (01) ==
LOC: EME 20:24
DX: R10.9 Unspecified abdominal pain (principal); M54.9 Dorsalgia, unspecified; K74.60 Unspecified cirrhosis of liver; I10 Essential (primary) hypertension; J45.909 Unspecified asthma, uncomplicated; I25.2 Old myocardial infarction; F17.200 Nicotine dependence, unspecified, uncomplicated; Z79.82 Long term (current) use of aspirin; Z91.041 Radiographic dye allergy status; Z88.6 Allergy status to analgesic agent
CPT/HCPCS: 80053; 81003; 85027; 99281; 99284

== ENCOUNTER 2018-02-12 06:25 | Emergency (ER) | payer SELFPAY ==
[~2018-02-12] VITALS: Ht 152.4 cm; Wt 71.1 kg
[2018-02-12 06:34] VITALS: BP 154/88
[2018-02-12 07:19] LABS: APPEARANCE CLEAR ((CLEAR)); BILIRUBIN NEGATIVE; BLOOD SMALL; COLOR YELLOW ((YELLOW)); GLUCOSE (STRIP) NEGATIVE; KETONES NEGATIVE; LEUKOCYTES NEGATIVE; NITRITE NEGATIVE; PROTEIN (STRIP) 100; SPECIFIC GRAVITY 1.015 (1.000-1.030)
[2018-02-12 07:24] LABS: HEMATOCRIT 26.8 % (36.0-46.0); HEMOGLOBIN 8.6 G/DL (11.9-15.5); MCH 28.8 PG (29.0-34.0); MCHC 32.1 G/DL (30.0-36.0); MCV 89.6 FL (83-99); PLATELET COUNT 80 K/uL (156-360); RBC DIS.WIDTH-SD 52.2 % (39-53); RED BLOOD COUNT 2.99 M/uL (3.80-5.20); WHITE BLOOD COUNT 5.8 K/uL (4.1-10.2)
[2018-02-12 07:33] LABS: BACTERIA RARE /HPF; EPITHELIAL CELLS RARE /HPF; MUCUS TRACE /LPF; UCUL ADDED? NO; WHITE BLOOD CELLS 0-5 /HPF (0-5)
[2018-02-12 07:51] LABS: ALBUMIN 2.5 G/DL (3.2-4.8); ALKALINE PHOSPHATASE 157 IU/L (3-129); ALT (GPT) 12 IU/L (3-49); AST (GOT) 17 IU/L (2-34); CHLORIDE 112 MEQ/L (99-109); CREATININE 1.5 MG/DL (0.6-1.3); GFR ESTIMATE (CALCULATED) 38 mL/min/; GLUCOSE 121 mg/dL (70-99); POTASSIUM 4.5 MEQ/L (3.7-5.4); SODIUM 138 MEQ/L (136-147); TOTAL BILIRUBIN 1.3 MG/DL (0.0-1.0); UREA NITROGEN (BUN) 23 mg/dL (9-23)
[2018-02-12 09:23] LABS: INTER. NORMALIZED RATIO 1.2
== END 2018-02-12 11:14 | disposition left against medical advice (07) ==
LOC: EME 06:25
PROVIDERS: Emergency Medicine
DX: R18.8 Other ascites (principal); I10 Essential (primary) hypertension; K74.60 Unspecified cirrhosis of liver; J45.909 Unspecified asthma, uncomplicated; I25.2 Old myocardial infarction; F17.200 Nicotine dependence, unspecified, uncomplicated; Z79.82 Long term (current) use of aspirin; Z79.02 Long term (current) use of antithrombotics/antiplatelets; Z79.891 Long term (current) use of opiate analgesic; Z98.890 Other specified postprocedural states; Z91.041 Radiographic dye allergy status; Z88.6 Allergy status to analgesic agent
CPT/HCPCS: 80053; 81003; 85027; 85610

== ENCOUNTER 2018-03-02 14:13 | Emergency (ER) | payer OTHER ==
[~2018-03-02] VITALS: Ht 154.9 cm; Wt 71.7 kg
[2018-03-02 14:40] LABS: HEMATOCRIT 25.7 % (36.0-46.0); HEMOGLOBIN 8.4 G/DL (11.9-15.5); MCH 29.5 PG (29.0-34.0); MCHC 32.7 G/DL (30.0-36.0); MCV 90.2 FL (83-99); PLATELET COUNT 74 K/uL (156-360); RBC DIS.WIDTH-SD 53.4 % (39-53); RED BLOOD COUNT 2.85 M/uL (3.80-5.20); WHITE BLOOD COUNT 5.5 K/uL (4.1-10.2)
[2018-03-02 14:48] LABS: ALBUMIN 2.4 g/dL (3.2-4.8)
[2018-03-02 14:49] LABS: CHLORIDE 111 mEq/L (99-109); POTASSIUM 4.8 mEq/L (3.7-5.4); SODIUM 138 mEq/L (136-147)
[2018-03-02 14:51] LABS: GLUCOSE 136 mg/dL (70-99); TOTAL PROTEIN 7.7 g/dL (6.4-8.3)
[2018-03-02 14:53] LABS: TOTAL BILIRUBIN 0.7 mg/dL (0.0-1.0)
[2018-03-02 14:54] LABS: ALKALINE PHOSPHATASE 180 IU/L (3-129)
[2018-03-02 14:55] LABS: CREATININE 1.5 mg/dL (0.6-1.3); GFR ESTIMATE (CALCULATED) 38 mL/min/
[2018-03-02 14:56] LABS: AST (GOT) 18 IU/L (2-34); UREA NITROGEN (BUN) 28 mg/dL (9-23)
[2018-03-02 14:58] LABS: ALT (GPT) 13 IU/L (3-49)
[2018-03-02 15:45] LABS: APPEARANCE CLEAR ((CLEAR)); BILIRUBIN NEGATIVE; BLOOD SMALL; COLOR YELLOW ((YELLOW)); GLUCOSE (STRIP) NEGATIVE; KETONES NEGATIVE; LEUKOCYTES SMALL; NITRITE NEGATIVE; PROTEIN (STRIP) 100; SPECIFIC GRAVITY 1.019 (1.000-1.030)
[2018-03-02 15:51] LABS: BACTERIA 1+ /HPF; EPITHELIAL CELLS 1+ /HPF; MUCUS TRACE /LPF; RED BLOOD CELLS 0-5 /HPF (0-5); UCUL ADDED? YES
[2018-03-02 19:10] LABS: TYPE OF FLUID PERITONEAL
[2018-03-02 19:32] LABS: APPEARANCE SL. HAZY-COLORLESS; BODY FLUID RBC'S < 1000 /MM^3 (0-100); BODY FLUID WBC'S 37 /MM^3 (0-500)
[2018-03-02 21:13] VITALS: BP 151/83
[2018-03-02 21:35] LABS: BODY FLUID EOSINOPHILS 2 % (0-25); MONONUCLEAR WBC'S 84 %; POLYNUCLEAR WBC'S 14 % (0-25)
[2018-03-03 04:56] LABS: BODY FLUID LDH 56 IU/L
[2018-03-03 05:00] LABS: BODY FLUID PROTEIN < 3.0 G/DL
[2018-03-03 07:50] LABS: BODY FLUID GLUCOSE 145 MG/DL
[2018-03-04 03:42] LABS: BODY FLUID AMYLASE 10 U/L
== END 2018-03-02 21:03 | disposition home or self-care (01) ==
LOC: EME 14:13
PROVIDERS: Physician Assistant
PROC: 0W9G3ZZ Drainage of Peritoneal Cavity, Percutaneous Approach (ICD-10-PCS; principal; 2018-03-02)
DX: R18.8 Other ascites (principal); D64.9 Anemia, unspecified; I12.9 Hypertensive chronic kidney disease with stage 1 through stage 4 chronic kidney disease, or unspecified chronic kidney disease; N18.9 Chronic kidney disease, unspecified; D69.6 Thrombocytopenia, unspecified; K74.60 Unspecified cirrhosis of liver; Z95.5 Presence of coronary angioplasty implant and graft; J45.909 Unspecified asthma, uncomplicated; I25.2 Old myocardial infarction; Z79.82 Long term (current) use of aspirin; Z88.6 Allergy status to analgesic agent; Z87.891 Personal history of nicotine dependence; Z79.02 Long term (current) use of antithrombotics/antiplatelets
CPT/HCPCS: 49083; 80053; 81003; 82150 91; 82945; 83615 91; 84157; 85027; 87070; 87075; 87086; 87205; 89051; 99281; 99285

== ENCOUNTER 2018-03-04 19:59 | Observation (INO) | payer OTHER ==
[~2018-03-04] VITALS: Ht 152.4 cm; Wt 68.5 kg
[2018-03-04 20:21] LABS: HEMATOCRIT 25.8 % (36.0-46.0); HEMOGLOBIN 8.3 G/DL (11.9-15.5); MCH 29.4 PG (29.0-34.0); MCHC 32.2 G/DL (30.0-36.0); MCV 91.5 FL (83-99); PLATELET COUNT 83 K/uL (156-360); RBC DIS.WIDTH-CV 16.1 % (11.8-14.6); RBC DIS.WIDTH-SD 54.6 % (39-53); RED BLOOD COUNT 2.82 M/uL (3.80-5.20); WHITE BLOOD COUNT 5.1 K/uL (4.1-10.2)
[2018-03-04 20:32] LABS: APPEARANCE CLEAR ((CLEAR)); BILIRUBIN NEGATIVE; BLOOD SMALL; COLOR YELLOW ((YELLOW)); GLUCOSE (STRIP) 50; KETONES NEGATIVE; LEUKOCYTES NEGATIVE; NITRITE NEGATIVE; PROTEIN (STRIP) 100; SPECIFIC GRAVITY 1.019 (1.000-1.030)
[2018-03-04 20:36] LABS: ALBUMIN 2.4 g/dL (3.2-4.8)
[2018-03-04 20:37] LABS: BACTERIA RARE /HPF; EPITHELIAL CELLS 1+ /HPF; MUCUS TRACE /LPF; UCUL ADDED? NO; WHITE BLOOD CELLS 0-5 /HPF (0-5)
[2018-03-04 20:37] LABS: CHLORIDE 110 mEq/L (99-109); POTASSIUM 5.1 mEq/L (3.7-5.4); SODIUM 138 mEq/L (136-147)
[2018-03-04 20:39] LABS: TOTAL PROTEIN 7.7 g/dL (6.4-8.3)
[2018-03-04 20:40] LABS: GLUCOSE 238 mg/dL (70-99)
[2018-03-04 20:41] LABS: TOTAL BILIRUBIN 0.7 mg/dL (0.0-1.0)
[2018-03-04 20:42] LABS: ALKALINE PHOSPHATASE 174 IU/L (3-129)
[2018-03-04 20:43] LABS: CREATININE 1.5 mg/dL (0.6-1.3); GFR ESTIMATE (CALCULATED) 38 mL/min/
[2018-03-04 20:44] LABS: AST (GOT) 22 IU/L (2-34); UREA NITROGEN (BUN) 25 mg/dL (9-23)
[2018-03-04 20:46] LABS: ALT (GPT) 17 IU/L (3-49)
[2018-03-04 23:38] LABS: LIPASE 37 U/L (1.0-51.0)
[2018-03-05] MEDS ORDERED: PROTONIX40 MG PO (01:46)
[2018-03-05 03:57] VITALS: BP 140/68
[2018-03-05 07:53] VITALS: BP 128/70
[2018-03-05 10:11] LABS: BASOPHIL (%) 0.5 % (0-1); EOSINOPHIL (%) 0 % (0-5); HEMOGLOBIN 8.3 G/DL (11.9-15.5); IMMATURE GRANULOCYTE (%) 0.2 % (0.0-0.7); LYMPHOCYTE (%) 13.6 % (15-42); LYMPHOCYTE COUNT 0.6 K/uL (1.0-2.8); MCH 29.1 PG (29.0-34.0); MCHC 31.9 G/DL (30.0-36.0); MCV 91.2 FL (83-99); MONOCYTE (%) 6.1 % (3-12); MONOCYTE COUNT 0.3 K/uL (0-0.8); NEUTROPHIL (%) 79.6 % (45-76); NEUTROPHIL COUNT 3.3 K/uL (1.8-6.4); PLATELET COUNT 85 K/uL (156-360); RBC DIS.WIDTH-CV 16.1 % (11.8-14.6); RBC DIS.WIDTH-SD 53.8 % (39-53); RED BLOOD COUNT 2.85 M/uL (3.80-5.20); WHITE BLOOD COUNT 4.1 K/uL (4.1-10.2)
[2018-03-05 10:59] LABS: ALBUMIN 2.3 G/DL (3.2-4.8); ALKALINE PHOSPHATASE 155 IU/L (3-129); ALT (GPT) 15 IU/L (3-49); AST (GOT) 21 IU/L (2-34); CHLORIDE 106 MEQ/L (99-109); CREATININE 1.4 MG/DL (0.6-1.3); GFR ESTIMATE (CALCULATED) 41 mL/min/; GLUCOSE 145 mg/dL (70-99); POTASSIUM 4.2 MEQ/L (3.7-5.4); SODIUM 136 MEQ/L (136-147); TOTAL BILIRUBIN 0.9 MG/DL (0.0-1.0); TOTAL PROTEIN 7.2 G/DL (6.4-8.3); UREA NITROGEN (BUN) 25 mg/dL (9-23)
[2018-03-05 16:11] VITALS: BP 120/64
[2018-03-05] MEDS ORDERED: ARYMO ER15 MG PO (19:47)
== END 2018-03-05 21:05 | disposition home or self-care (01) ==
LOC: EME 19:59 → 5EAST 03-05 01:40 → EDOF 03-05 01:40 → ENRESERV 03-05 01:49 → 5EAST 03-05 03:26
PROVIDERS: Internal Medicine
PROC: 0W9G3ZZ Drainage of Peritoneal Cavity, Percutaneous Approach (ICD-10-PCS; principal; 2018-03-05)
DX: R18.8 Other ascites (principal); K74.60 Unspecified cirrhosis of liver; R10.9 Unspecified abdominal pain; I25.10 Atherosclerotic heart disease of native coronary artery without angina pectoris; E11.9 Type 2 diabetes mellitus without complications; I10 Essential (primary) hypertension; Z95.5 Presence of coronary angioplasty implant and graft; J44.9 Chronic obstructive pulmonary disease, unspecified; F17.210 Nicotine dependence, cigarettes, uncomplicated; Z82.49 Family history of ischemic heart disease and other diseases of the circulatory system; Z83.3 Family history of diabetes mellitus; Z88.6 Allergy status to analgesic agent; Z91.041 Radiographic dye allergy status
CPT/HCPCS: 49083; 74176; 80053; 81003; 82948; 83690; 85025; 85027; 99281; 99285; G0378; J1644; J1940; J2270

== ENCOUNTER → 2018-03-31 | Outpatient (CLI) | payer OTHER | END | disposition home or self-care (01) | LOC: RAD 08:00 | PROC: 0W9G3ZZ Drainage of Peritoneal Cavity, Percutaneous Approach (ICD-10-PCS; principal; 2018-03-31) | DX: R18.8 Other ascites (principal) | CPT/HCPCS: 49083 ==

== ENCOUNTER 2018-04-09 16:50 | Emergency (ER) | payer OTHER ==
[~2018-04-09] VITALS: Ht 152.4 cm; Wt 69.2 kg
[2018-04-09 17:16] LABS: HEMATOCRIT 25.1 % (36.0-46.0); HEMOGLOBIN 8.2 G/DL (11.9-15.5); MCH 29.7 PG (29.0-34.0); MCHC 32.7 G/DL (30.0-36.0); MCV 90.9 FL (83-99); PLATELET COUNT 74 K/uL (156-360); RBC DIS.WIDTH-CV 15.7 % (11.8-14.6); RBC DIS.WIDTH-SD 52.1 % (39-53); RED BLOOD COUNT 2.76 M/uL (3.80-5.20); WHITE BLOOD COUNT 4.5 K/uL (4.1-10.2)
[2018-04-09 17:24] LABS: ALBUMIN 2.5 g/dL (3.2-4.8); CHLORIDE 111 mEq/L (99-109); POTASSIUM 4.3 mEq/L (3.7-5.4); SODIUM 137 mEq/L (136-147)
[2018-04-09 17:26] LABS: GLUCOSE 164 mg/dL (70-99); TOTAL PROTEIN 7.6 g/dL (6.4-8.3)
[2018-04-09 17:28] LABS: TOTAL BILIRUBIN 0.6 mg/dL (0.0-1.0)
[2018-04-09 17:30] LABS: ALKALINE PHOSPHATASE 166 IU/L (3-129); CREATININE 1.4 mg/dL (0.6-1.3); GFR ESTIMATE (CALCULATED) 41 mL/min/
[2018-04-09 17:31] LABS: AST (GOT) 17 IU/L (2-34); UREA NITROGEN (BUN) 23 mg/dL (9-23)
[2018-04-09 17:33] LABS: ALT (GPT) 15 IU/L (3-49); LIPASE 54 U/L (1.0-51.0)
[2018-04-09 17:37] LABS: APPEARANCE SL.HAZY ((CLEAR)); BILIRUBIN NEGATIVE; BLOOD MODERATE; COLOR YELLOW ((YELLOW)); GLUCOSE (STRIP) NEGATIVE; KETONES NEGATIVE; LEUKOCYTES TRACE; NITRITE NEGATIVE; PROTEIN (STRIP) 100; SPECIFIC GRAVITY 1.016 (1.000-1.030)
[2018-04-09 17:59] LABS: BACTERIA RARE /HPF; EPITHELIAL CELLS 2+ /HPF; MUCUS TRACE /LPF; RED BLOOD CELLS 0-5 /HPF (0-5); UCUL ADDED? NO; WHITE BLOOD CELLS 0-5 /HPF (0-5)
[2018-04-09] MEDS ORDERED: CIPRO500 MG PO (19:09)
[2018-04-09 19:25] VITALS: BP 148/72
== END 2018-04-09 19:26 | disposition home or self-care (01) ==
LOC: EME 16:50
PROVIDERS: Emergency Medicine
DX: N39.0 Urinary tract infection, site not specified (principal); N12 Tubulo-interstitial nephritis, not specified as acute or chronic; R18.8 Other ascites; K76.6 Portal hypertension; I25.10 Atherosclerotic heart disease of native coronary artery without angina pectoris; D64.9 Anemia, unspecified; I10 Essential (primary) hypertension; E11.9 Type 2 diabetes mellitus without complications; J45.909 Unspecified asthma, uncomplicated; K74.60 Unspecified cirrhosis of liver; F17.200 Nicotine dependence, unspecified, uncomplicated; I25.2 Old myocardial infarction; Z79.82 Long term (current) use of aspirin; Z87.442 Personal history of urinary calculi; Z91.041 Radiographic dye allergy status; Z88.6 Allergy status to analgesic agent; Z91.09 Other allergy status, other than to drugs and biological substances
CPT/HCPCS: 74176; 80053; 81003; 83690; 85027; 99281; 99285; J3010

== ENCOUNTER → 2018-04-14 | Outpatient (CLI) | payer OTHER | END | disposition home or self-care (01) | LOC: RAD 08:10 | PROC: 0W9G3ZZ Drainage of Peritoneal Cavity, Percutaneous Approach (ICD-10-PCS; principal; 2018-04-14) | DX: R18.8 Other ascites (principal) | CPT/HCPCS: 49083 ==

== ENCOUNTER → 2018-04-28 | Outpatient (CLI) | payer OTHER | END | disposition home or self-care (01) | LOC: RAD 08:19 | PROC: 0W9G3ZZ Drainage of Peritoneal Cavity, Percutaneous Approach (ICD-10-PCS; principal; 2018-04-28) | DX: R18.8 Other ascites (principal) | CPT/HCPCS: 49083 ==

== ENCOUNTER → 2018-05-13 | Outpatient (CLI) | payer OTHER | END | disposition home or self-care (01) | LOC: RAD 08:05 | PROC: 0W9G3ZZ Drainage of Peritoneal Cavity, Percutaneous Approach (ICD-10-PCS; principal; 2018-05-13) | DX: R18.8 Other ascites (principal) | CPT/HCPCS: 49083 ==

== ENCOUNTER → 2018-05-26 | Outpatient (CLI) | payer OTHER | END | disposition home or self-care (01) | LOC: RAD 10-27 08:15 | PROC: 0W9G3ZZ Drainage of Peritoneal Cavity, Percutaneous Approach (ICD-10-PCS; principal; 2018-05-26) | DX: R18.8 Other ascites (principal) | CPT/HCPCS: 49083 ==

== ENCOUNTER → 2018-06-09 | Outpatient (CLI) | payer OTHER | END | disposition home or self-care (01) | LOC: RAD 07:45 | PROC: 0W9G3ZZ Drainage of Peritoneal Cavity, Percutaneous Approach (ICD-10-PCS; principal; 2018-06-09) | DX: R18.8 Other ascites (principal) | CPT/HCPCS: 49083 ==

== ENCOUNTER → 2018-06-23 | Outpatient (CLI) | payer OTHER | END | disposition home or self-care (01) | LOC: RAD 08:05 | PROC: 0W9G3ZZ Drainage of Peritoneal Cavity, Percutaneous Approach (ICD-10-PCS; principal; 2018-06-23) | DX: R18.8 Other ascites (principal) | CPT/HCPCS: 49083 ==

== ENCOUNTER → 2018-07-07 | Outpatient (CLI) | payer OTHER | END | disposition home or self-care (01) | LOC: RAD 07:58 | PROC: 0W9G3ZZ Drainage of Peritoneal Cavity, Percutaneous Approach (ICD-10-PCS; principal; 2018-07-07) | DX: R18.8 Other ascites (principal) | CPT/HCPCS: 49083 ==